=== PATIENT | male | born 1970 | race Caucasian/White ===

== ENCOUNTER → 2017-08-01 | Outpatient (CLI) | payer OTHER ==
--- NOTE | 2017-08-01 10:48 | RAD ---
Examination: Lumbar spine, AP and lateral views History: Back pain and left leg pain Findings: Mild disc narrowing and osteophyte formation at multiple levels. This is most advanced at L 5-S1. There is slight anterior listhesis at L5-S1. No fracture or bone destruction is seen. Impression: No acute process identified. Degenerative disc disease and spondylosis. L5-S1 subluxati on may be of degenerative origin although additional imaging would be helpful to detect possible pars interarticularis defects at L5, that would predispose to this deformity. Reported By:
== END ==
LOC: RAD 10:01
PROVIDERS: ATTEND Internal Medicine
DX: Z02.71 Encounter for disability determination (principal)
CPT/HCPCS: 72100

== ENCOUNTER 2019-03-22 07:28 | Observation (INO) ==
[2019-03-22 08:05] VITALS: BMI 41.9
[2019-03-22] MEDS ORDERED: ZOFRAN INJ 4 MG VIAL IVP ONE ×2 (08:09→09:03)
[2019-03-22] MEDS ORDERED: ZOFRAN INJ 4 MG VIAL ONE (08:13)
[2019-03-22 08:32] LABS: BASOPHILS # (AUTO) 0.1 X10^3/uL (0.0-0.1); BASOPHILS % (AUTO) 0.4 % (0.2-1.0); EOSINOPHILS # (AUTO) 0.6 x10^3/uL (0.0-0.2); EOSINOPHILS % (AUTO) 2.8 % (0.9-2.9); HEMATOCRIT 45.4 % (42.0-54.0); HEMOGLOBIN 15.5 g/dL (13.5-18.0); LYMPHOCYTES # (AUTO) 1.8 X10^3/uL (1.3-2.9); LYMPHOCYTES % (AUTO) 7.9 % (21.0-51.0); MEAN CORPUSCULAR HEMOGLOBIN 29.8 pg (27.0-34.0); MEAN CORPUSCULAR HGB CONC 34.2 g/dL (33.0-35.0); MEAN CORPUSCULAR VOLUME 87.2 fL (80.0-100.0); MEAN PLATELET VOLUME 10.1 fL (7.4-11.0); MONOCYTES # (AUTO) 1.5 x10^3/uL (0.3-0.8); MONOCYTES % (AUTO) 6.6 % (0.0-13.0); NEUTROPHILS # (AUTO) 18.5 x10^3/uL (2.2-4.8); NEUTROPHILS % (AUTO) 82.3 % (42.0-75.0); PLATELET COUNT 356 X10^3/uL (150.0-450.0); RED CELL DISTRIBUTION WIDTH 16.1 % (11.6-16.5); WHITE BLOOD COUNT 22.5 X10^3/uL (3.6-10.0)
[2019-03-22] MEDS ORDERED: NS 1000 ML 1,000 ML ONE ×2 (08:35→10:21)
[2019-03-22] MEDS ORDERED: NS 1000 ML 1,000 ML IV ONE ×3 (08:35→10:17)
[2019-03-22 08:36] LABS: BLOOD UREA NITROGEN 17 mg/dL (7-18); CALCIUM 9.3 mg/dL (8.5-10.1); CARBON DIOXIDE 28.9 mmol/L (21-32); CHLORIDE 101 mmol/L (98-107); COR NA(FOR HYPERGLY) 142 mmol/L (136-145); CREATININE 0.95 mg/dL (0.70-1.30); SODIUM 141 mmol/L (136-145); eGFR NON BLACK RACES > 60 (>60)
[2019-03-22 09:01] LABS: BAND NEUTROPHILS % 5 % (0-10)
[2019-03-22 09:02] LABS: PLATELET MORPHOLOGY COMMENT NORMAL (NORMAL)
--- NOTE | 2019-03-22 09:27 | DR.N/VMALE ---
HPI Time Seen Time Seen by Provider: 03/22/19 08:08 Primary Care Physician Primary Care Physician: AMITA CORNELL HPI Comment HPI Comment: 49 yo CM w/ prev hx of electrocution, sarcardosis, splenectomy presents w/ n/v/d x 5 hrs. Multiple episodes of emesis, a/w diffuse abd cramping. Denies f/c, urinary sx's, bllod per rectum, CP/ SOB. Complaints Chief Complaint:: nausea/ vomiting/ diarrhea Reviewed Nurses Notes Reviewed: Yes Source History Provided: Patient Mode of Arrival Mode of Arrival: Ambulatory Timing Onset of Chief Complaint: 03/22/19 Duration Duration: 5 h Severity Number of episodes of vomiting over last 24 hours: 4 Context Onset: After Eating Recent: Contact Exposure Possible Ingestion: Unknown History of: Abdominal Operation Quality Quality: Food Particles Associated Signs and Symptoms Abdominal Pain Quality: Cramping Abdominal Pain Location: Diffuse Symptoms: Abdominal Pain and Diarrhea; denies Hematemesis, Melena, Hematochezia and Fever PMH PMH Past Medical History: Yes Past Medical History: Hypertension Past Medical History Comment: SARCOIDOSIS AND ELECTROCUTED IN 2017 Past Surgical History: Yes Surgical History: Ortho Surgery and Spleenectomy Family History History of Family Medical Conditions: Yes Family Medical History: [place], Coronary Artery Disease, Heart Failure and Hypertension Social History Does patient currently use any type of tobacco product: No Have you used tobacco products in the last 12 months: No Type of Tobacco Use: None Does any household member use tobacco: No Alcohol Use: None Do you use any recreational Drugs:: No Lives With: Family Lives Where: Home infectious screening In the last 2 months have you had wt loss of >10#?: NO Have you had fever, night sweats or hemotysis?: No Have you traveled outside the country in the last 6 months?: No Isolation: Standard ROS Review of Systems Constitutional: negative Chills, Fever and Malaise Respiratoy: negative Non-Productive Cough and Dry Cough Cardiovascular: No Symptoms Reported Gastrointestinal/Abdominal: Abdominal Pain, Diarrhea, Nausea and Vomiting; negative Constipation Genitourinary: No Symptoms Reported; negative Dysuria and Frequency Neurological: No Symptoms Reported; negative Headache and Numbness Musculoskeletal: No Symptoms Reported; negative Back Pain and Joint Pain Integumentary: No Symptoms Reported Hematologic/Lymphatic: No Symptoms Reported Endocrine: No Symptoms Reported Psychiatric: No Symptoms Reported All Other Systems: Reviewed and Negative PE Vital Signs Vitals: Temperature 99.7 F Pulse Rate [Left] 100 Pulse Rate 113 Respiratory Rate 18 Blood Pressure [Left Arm] 143/98 Blood Pressure 129/86 O2 Sat by Pulse Oximetry 90 General Limitations: No Limitations General Appearance: Alert, In Distress and Obese Head Head Exam: Normal Inspection Eyes Eye exam: Normal Appearance; negative Scleral Icterus ENT ENT Exam: Normal Exam Neck Neck Exam: Normal Inspection Chest Chest Inspection: Normal Inspection Respiratory Respiratory Exam: Normal Lung Sounds Bilat Cardiovascular Cardiovascular Exam: Normal Rhythm and Tachycardia; negative Systolic Murmur Abdominal Exam Abdominal Exam: Tenderness (mild diffuse tenderness ) and Hyperactive Bowel Sounds; negative Guarding, Rebound, Rigidity, Mass and Hernia Extremities Extremities Exam: Normal Inspection Back Back Exam: Normal Inspection Neurologic Neurological Exam: Alert and Oriented X3; negative Motor Sensory Deficit Psychiatric Psychiatric Exam: Normal Affect Skin Skin Exam: Warm and Dry; negative Rash MDM Additional Information Obtained Additional Information Obtained From: Old Records Differential Diagnosis Differential Diagnosis: Considerations may Include:: Bowel Obstruction, Cholecystitis, Food Poisoning, Gastritis, Gastroenteritis and Pancreatitis COURSE Treatment Treatment: Patient with previous hx of asplenia and ongoing oncologic workup presents with gastroenteritis. CBC w/ elevated wbc w/ left shift. BMP unremarkable. Given Zofran/ Compazine with symptomatic relief. 2L IVF bolus given. Persistent mild tachycardia hr 100-110 bpm range. Started on iv flagyl. d/w hospitalist Dr Cody whom agrees to admit to observation. CT abd/ pelvis ordered per hiss recommendation. Education/Counseling Education/Counseling: Patient and Family ROR Labs Reviewed Result Diagrams: 03/22/19 08:23 03/22/19 08:23 Laboratory: WBC 22.5 X10^3/uL (3.6-10.0) H 03/22/19 08:23 RBC 5.20 X10^6/uL (4.7-6.0) 03/22/19 08:23 Hgb 15.5 g/dL (13.5-18.0) 03/22/19 08:23 Hct 45.4 % (42.0-54.0) 03/22/19 08:23 MCV 87.2 fL (80.0-100.0) 03/22/19 08:23 MCH 29.8 pg (27.0-34.0) 03/22/19 08:23 MCHC 34.2 g/dL (33.0-35.0) 03/22/19 08:23 RDW 16.1 % (11.6-16.5) 03/22/19 08:23 Plt Count 356 X10^3/uL (150.0-450.0) 03/22/19 08:23 Plt Count Comment Adequate (ADEQUATE) 03/22/19 08:23 MPV 10.1 fL (7.4-11.0) 03/22/19 08:23 Neut % (Auto) 82.3 % (42.0-75.0) H 03/22/19 08:23 Lymph % (Auto) 7.9 % (21.0-51.0) L 03/22/19 08:23 [place] % (Auto) 6.6 % (0.0-13.0) 03/22/19 08:23 Eos % (Auto) 2.8 % (0.9-2.9) 03/22/19 08:23 Baso % (Auto) 0.4 % (0.2-1.0) 03/22/19 08:23 Neut # (Auto) 18.5 x10^3/uL (2.2-4.8) H 03/22/19 08:23 Lymph # (Auto) 1.8 X10^3/uL (1.3-2.9) 03/22/19 08:23 [place] # (Auto) 1.5 x10^3/uL (0.3-0.8) H 03/22/19 08:23 Eos # (Auto) 0.6 x10^3/uL (0.0-0.2) H 03/22/19 08:23 Baso # (Auto) 0.1 X10^3/uL (0.0-0.1) 03/22/19 08:23 Absolute Nucleated RBC 0.1 /100WBC 03/22/19 08:23 Total Counted 100 03/22/19 08:23 Neutrophils % (Manual) 82 % (39-76) H 03/22/19 08:23 Band Neutrophils % 5 % (0-10) 03/22/19 08:23 Lymphocytes % (Manual) 9 % (13-43) L 03/22/19 08:23 Monocytes % (Manual) 2 % (4-9) L 03/22/19 08:23 Eosinophils % (Manual) 2 % (0-6) 03/22/19 08:23 Plt Morphology Comment Normal (NORMAL) 03/22/19 08:23 RBC Morphology Normal (NORMAL) 03/22/19 08:23 Sodium 141 mmol/L (136-145) 03/22/19 08:23 Corrected Sodium 142 mmol/L (136-145) 03/22/19 08:23 Potassium 3.6 mmol/L (3.5-5.1) 03/22/19 08:23 Chloride 101 mmol/L (98-107) 03/22/19 08:23 Carbon Dioxide 28.9 mmol/L (21-32) 03/22/19 08:23 BUN 17 mg/dL (7-18) 03/22/19 08:23 Creatinine 0.95 mg/dL (0.70-1.30) 03/22/19 08:23 Est GFR (MDRD) Af Amer > 60 (>60) 03/22/19 08:23 Est GFR (MDRD) Non-Af > 60 (>60) 03/22/19 08:23 Glucose 123 mg/dL (65-99) H 03/22/19 08:23 Calcium 9.3 mg/dL (8.5-10.1) 03/22/19 08:23 EKG Rate: 101 Rhythm: ST Block: RBBB Hypertrophy: None ST: Normal Opioid Opioid Risk Tool Total: 0 Total Score Risk Category: Low Risk Copyright: Martinez BISWAS predicting aberrant behaviors Diagnosis Discharge Problem: Nausea and vomiting in adult patient, Asplenia, Gastroenteritis Instructions Forms: Excuse From Work ADDITIONAL NOTES Additional Notes Additional Notes: Patient to be admitted to observation under Dr Cody
[2019-03-22] MEDS ORDERED: TYLENOL 500 MG TAB EXTRA STRENGTH PO ONE ×2 (09:46→09:49)
[2019-03-22] MEDS ORDERED: FLAGYL IV PREMIX 500 MG BAG 500 MG/100 ML BAG IV ONE ×2 (11:28→11:32)
[2019-03-22] MEDS ORDERED: COMPAZINE INJ IVP ONE (11:41)
[2019-03-22] MEDS ORDERED: PHENERGAN INJ 25 MG IM PRN (11:46)
[2019-03-22] MEDS ORDERED: COMPAZINE INJ ONE ×2 (11:46→12:00)
[2019-03-22] MEDS ORDERED: ZOFRAN INJ 4 MG VIAL IVP PRN (11:46)
[2019-03-22] MEDS ORDERED: NS 100 ML IV 100 ML ONE (13:58)
--- NOTE | 2019-03-22 14:53 | CT ---
HISTORY: Nausea, vomiting, diarrhea, sharp cramping pain; history of sarcoidosis Study: CT abdomen and pelvis with contrast Comparison: None Technique: Multiple axial images of the abdomen and pelvis were obtained with IV contrast. Oral contrast was administered. Dose reduction techniques including Automated Exposure Control (AEC) and adjustment of mA and kV were utilized. Findings: There is platelike atelectasis or scarring at the right lung base along the fissure. The spleen appears to be removed with a residual splenule in the left upper quadrant. Pancreas and liver and adrenal glands are unremarkable. Gallbladder is contracted. Otherwise normal there are punctate bilateral nonobstructing renal calculi. No free intraperitoneal air. No evidence of intestinal obstruction or inflammation. There is diverticulosis of the descending and sigmoid colon without acute inflammation. The appendix is normal. No abscess or ascites. There is anterolisthesis of L5 on S1 due to bilateral pars defects. The vascular structures are within normal limits for age. Scattered mildly enlarged periportal and retroperitoneal lymph nodes are nonspecific but possibly related to the history of sarcoidosis. Urinary bladder is unremarkable. IMPRESSION: 1. No acute abnormality identified. 2. Bilateral nephrolithiasis. 3. Colonic diverticulosis. 4. Previous splenectomy with splenule in the left upper quadrant. 5. Scattered periportal and retroperitoneal lymph nodes that are mildly prominent, possibly related to the given history of sarcoidosis. Reported By:
[2019-03-22] MEDS: NS 1000 ML 1,000 ML IV SCH ×2 (15:49→20:40)
[2019-03-22] MEDS: TYLENOL 325 MG TAB PO PRN ×2 (17:40→23:42)
[2019-03-22] MEDS: FLAGYL IV PREMIX 500 MG BAG 500 MG/100 ML BAG IV SCH (20:40)
[2019-03-23] MEDS: NS 1000 ML 1,000 ML IV SCH ×5 (00:58→22:20)
[2019-03-23] MEDS: FLAGYL IV PREMIX 500 MG BAG 500 MG/100 ML BAG IV SCH ×4 (02:09→22:21)
[2019-03-23 05:24] LABS: BASOPHILS # (AUTO) 0.2 X10^3/uL (0.0-0.1); BASOPHILS % (AUTO) 1.3 % (0.2-1.0); EOSINOPHILS # (AUTO) 0.4 x10^3/uL (0.0-0.2); HEMATOCRIT 38.4 % (42.0-54.0); LYMPHOCYTES # (AUTO) 2.9 X10^3/uL (1.3-2.9); LYMPHOCYTES % (AUTO) 19.8 % (21.0-51.0); MEAN CORPUSCULAR HEMOGLOBIN 30.1 pg (27.0-34.0); MEAN CORPUSCULAR HGB CONC 34.3 g/dL (33.0-35.0); MEAN CORPUSCULAR VOLUME 87.7 fL (80.0-100.0); MEAN PLATELET VOLUME 10.5 fL (7.4-11.0); MONOCYTES # (AUTO) 1.5 x10^3/uL (0.3-0.8); MONOCYTES % (AUTO) 10.2 % (0.0-13.0); NEUTROPHILS # (AUTO) 9.6 x10^3/uL (2.2-4.8); NEUTROPHILS % (AUTO) 65.7 % (42.0-75.0); PLATELET COUNT 307 X10^3/uL (150.0-450.0); RED BLOOD COUNT 4.38 X10^6/uL (4.7-6.0); WHITE BLOOD COUNT 14.6 X10^3/uL (3.6-10.0)
[2019-03-23 05:26] LABS: ALANINE AMINOTRANSFERASE 30 Units/L (12-78); ALKALINE PHOSPHATASE 37 Units/L (46-116); ASPARTATE AMINO TRANSFERASE 25 Units/L (15-37); BLOOD UREA NITROGEN 15 mg/dL (7-18); CARBON DIOXIDE 26.4 mmol/L (21-32); CHLORIDE 105 mmol/L (98-107); COR CA(FOR HYPOALB) 8.8 mg/dL (8.5-10.1); SODIUM 142 mmol/L (136-145); TOTAL PROTEIN 6.8 g/dL (6.4-8.2); eGFR NON BLACK RACES > 60 (>60)
[2019-03-23] MEDS ORDERED: KLOR-CON PO PRN (05:30)
[2019-03-23] MEDS ORDERED: K-RIDER 10 MEQ/NS 100 ML 10 MEQ/100 ML BAG IV PRN (05:30)
[2019-03-23] MEDS ORDERED: MICRO K EXTEN CAP 10 MEQ PO PRN (05:30)
[2019-03-23] MEDS ORDERED: POTASSIUM CHL 60 MEQ/NS 0.45% 500 ML IV PRN (05:30)
[2019-03-23] MEDS ORDERED: POTASSIUM CHLORIDE LIQ 20 MEQ UDC PO PRN (05:30)
[2019-03-23] MEDS ORDERED: POTASSIUM CHL 40 MEQ/NS 0.45% 500 ML IV PRN (05:30)
[2019-03-23] MEDS ORDERED: K-DUR TAB 20 MEQ PO PRN (05:30)
[2019-03-23 05:59] LABS: HEMOGLOBIN 13.2 g/dL (13.5-18.0)
[2019-03-23] MEDS: MAGNESIUM SULFATE 1 GRAM/100 mL PREMIX 1 GM/100 ML BAG IV PRN ×3 (06:37→12:00)
--- NOTE | 2019-03-23 14:11 | DR.H&P ---
H&P - History & Physical for Day of: H&P Date: 03/22/19 - Chief Complaint Chief Complaint: ABDOMINAL PAIN,N/V/D - History of Present Illness History of Present Illness: 49 WM ER ADMISSION AFTER PRESENTING WITH CO WEAKNESS, ABDOMINAL PAIN, N/V/D ONSET AFTER EATING AT FAMILY REUNION. PT STATES HE THINKS HE HAS FOOD POISONING. PT REPORTS OTHER FAMILY MEMEBERS HAVE SAME SYMPTOMS. PT HAD ELEVATED WBC ON ADMISSION IN ER WITH CT ABD PELVIS WITH CHRONIC FINDINGS. PT REPORTS HE IS UNDER CARE OF DR SARA ODEN FOR RECENT LEUKOCYTOSIS, WBC BEEN RUNNING AROUND 18K PER PT REPORTS. PT HAS HX OF SARCOIDSIS WITH PREVIOUS SLEENECTOMY. PT ADMITTED FOR TREATMENT OF DEHYDRATION AND ELECTROLYTE IMBALACE AND ACUTE GASTROENTERITIS. - Past Medical History Past Medical History: Hypertension Additional Medical History: SARCOIDOSIS, BLOOD DISORDER/LEUKOCYTOSIS OF UO - Past Surgical History Surgical History: Ortho Surgery, Spleenectomy - Family History Family Medical History: [place], Coronary Artery Disease, Heart Failure, Hypertension - Social History Does patient currently use any type of tobacco product: No Have you used tobacco products in the last 12 months: No Type of Tobacco Use: None Does any household member use tobacco: No Alcohol Use: None Drug Use: None - Medications Home Medications: codeine Allergy (Verified 03/22/19 08:05) - Review of Systems Constitutional: Weakness Eyes: No Symptoms Reported ENT: No Symptoms Reported Respiratory: No Symptoms Reported Cardiovascular: No Symptoms Reported Gastrointestinal: Nausea, Vomiting, Abdominal Pain, Diarrhea Genitourinary: No Symptoms Reported Musculoskeletal: No Symptoms Reported Skin: No Symptoms Reported Neurological: Weakness - Physical Exam Vital Signs: Temperature 98.9 F Pulse Rate [Left Brachial] 80 Pulse Rate [Left] 100 Pulse Rate 113 Respiratory Rate 18 Blood Pressure [Left Arm] 163/95 Blood Pressure 129/86 O2 Sat by Pulse Oximetry 94 Oriented: Normal Eyes: Normal Ear: Normal Nose: Normal Throat: Dry Respiratory: RLL Diminished, LLL Diminished Cardiovascular: Normal : Normal Auscultation: Bowel Sounds: Increased Tenderness: Diffuse, Mild Skin: Normal Musculoskeletal: Normal Psychiatric: Normal Affect: Anxious Speech Pattern: Clear, Appropriate - Assessment/Plan (1) Gastroenteritis Status: Acute Plan: ADMIT IV HYDRATION. IV ATBX THERAPY IV FLAGYL AND CIPRO. STOOL STUDIES. 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
--- NOTE | 2019-03-23 14:15 | PCM.PROG ---
Progress Note - Progress Note for Day of Date of Exam: 03/23/19 - Subjective Subjective: 49 WM ER ADMISSION ON 03/22 WITH ACUTE GASTROENTERITIS WITH SUSPECTED SOURCE FOOD RELATED. PT HAD LOW POTASSIUM AND MAGNESIUM, CURRENLTY ON ELECTROLYTE REPLACEMENT. PT IS ALSO ON IV HYDRATION. PAIN IMPROVING, WILL ADVANCE DIET SINCE NO VOMITING. WBC IMPROVED FROM 22.5 TO 14.6 - Past Medical Family Social History Past Med/Fam/Surg Hx: No changes since H&P Allergies: Allergies codeine Allergy (Verified 03/22/19 08:05) - Review of Systems ROS: No change since H&P - Vital Signs and I&O's Vital Signs: Temperature 98.9 F Pulse Rate [Left Brachial] 80 Pulse Rate [Left] 100 Pulse Rate 113 Respiratory Rate 18 Blood Pressure [Left Arm] 163/95 Blood Pressure 129/86 O2 Sat by Pulse Oximetry 94 Intake and Output: Intake & Output 03/21/19 03/22/19 03/23/19 03/24/19 11:59 11:59 11:59 11:59 Intake Total 1508 / 1508 Output Total 250 / 250 Balance 1258 / 1258 - Physical Exam Oriented: Normal Eyes: Normal Ear: Normal Nose: Normal Throat: Dry Respiratory: Diminished Cardiovascular: Normal : Normal Auscultation: Bowel Sounds: Increased Tenderness: Diffuse, Mild Skin: Normal Musculoskeletal: Normal Psychiatric: Normal Affect: Anxious Speech Pattern: Clear, Appropriate - Laboratory and Diagnostics Result Diagrams: 03/23/19 04:35 03/23/19 08:20 Labs: 03/22/19 12:48 Stool Stool Culture - Preliminary 03/22/19 12:48 Stool - Final Laboratory WBC 14.6 X10^3/uL (3.6-10.0) H 03/23/19 04:35 RBC 4.38 X10^6/uL (4.7-6.0) L 03/23/19 04:35 Hgb 13.2 g/dL (13.5-18.0) L D 03/23/19 04:35 Hct 38.4 % (42.0-54.0) L 03/23/19 04:35 MCV 87.7 fL (80.0-100.0) 03/23/19 04:35 MCH 30.1 pg (27.0-34.0) 03/23/19 04:35 MCHC 34.3 g/dL (33.0-35.0) 03/23/19 04:35 RDW 16.0 % (11.6-16.5) 03/23/19 04:35 Plt Count 307 X10^3/uL (150.0-450.0) 03/23/19 04:35 Plt Count Comment Adequate (ADEQUATE) 03/22/19 08:23 MPV 10.5 fL (7.4-11.0) 03/23/19 04:35 Neut % (Auto) 65.7 % (42.0-75.0) 03/23/19 04:35 Lymph % (Auto) 19.8 % (21.0-51.0) L 03/23/19 04:35 [place] % (Auto) 10.2 % (0.0-13.0) 03/23/19 04:35 Eos % (Auto) 3.0 % (0.9-2.9) H 03/23/19 04:35 Baso % (Auto) 1.3 % (0.2-1.0) H 03/23/19 04:35 Neut # (Auto) 9.6 x10^3/uL (2.2-4.8) H 03/23/19 04:35 Lymph # (Auto) 2.9 X10^3/uL (1.3-2.9) 03/23/19 04:35 [place] # (Auto) 1.5 x10^3/uL (0.3-0.8) H 03/23/19 04:35 Eos # (Auto) 0.4 x10^3/uL (0.0-0.2) H 03/23/19 04:35 Baso # (Auto) 0.2 X10^3/uL (0.0-0.1) H 03/23/19 04:35 Absolute Nucleated RBC 0.1 /100WBC 03/23/19 04:35 Total Counted 100 03/22/19 08:23 Neutrophils % (Manual) 82 % (39-76) H 03/22/19 08:23 Band Neutrophils % 5 % (0-10) 03/22/19 08:23 Lymphocytes % (Manual) 9 % (13-43) L 03/22/19 08:23 Monocytes % (Manual) 2 % (4-9) L 03/22/19 08:23 Eosinophils % (Manual) 2 % (0-6) 03/22/19 08:23 Plt Morphology Comment Normal (NORMAL) 03/22/19 08:23 RBC Morphology Normal (NORMAL) 03/22/19 08:23 Sodium 142 mmol/L (136-145) 03/23/19 04:35 Corrected Sodium TNP 03/23/19 04:35 Potassium 3.8 mmol/L (3.5-5.1) 03/23/19 08:20 Chloride 105 mmol/L (98-107) 03/23/19 04:35 Carbon Dioxide 26.4 mmol/L (21-32) 03/23/19 04:35 BUN 15 mg/dL (7-18) 03/23/19 04:35 Creatinine 0.90 mg/dL (0.70-1.30) 03/23/19 04:35 Est GFR (MDRD) Af Amer > 60 (>60) 03/23/19 04:35 Est GFR (MDRD) Non-Af > 60 (>60) 03/23/19 04:35 Glucose 101 mg/dL (65-99) H 03/23/19 04:35 Calcium 8.0 mg/dL (8.5-10.1) L 03/23/19 04:35 Corrected Calcium 8.8 mg/dL (8.5-10.1) 03/23/19 04:35 Magnesium 1.2 mg/dL (1.7-2.9) L 03/23/19 04:35 Total Bilirubin 0.50 mg/dL (0.2-1.0) 03/23/19 04:35 AST 25 Units/L (15-37) 03/23/19 04:35 ALT 30 Units/L (12-78) 03/23/19 04:35 Alkaline Phosphatase 37 Units/L (46-116) L 03/23/19 04:35 Total Protein 6.8 g/dL (6.4-8.2) 03/23/19 04:35 Albumin 3.0 g/dL (3.4-5.0) L 03/23/19 04:35 Globulin 3.8 g/dL (2.5-4.5) 03/23/19 04:35 Albumin/Globulin Ratio 0.8 Ratio (1.1-2.1) L 03/23/19 04:35 Stool Description 240g,lt brown,liquid 03/22/19 12:48 Stl Occult Blood (IFOB) Negative (NEGATIVE) 03/22/19 12:48 Stool for White Cells Positive (NEGATIVE) A 03/22/19 12:48 Stl C. diff Tox B Gene Negative (NEGATIVE) 03/22/19 12:48 Stl C. diff [id number] Negative (NEGATIVE) 03/22/19 12:48 - Plan (1) Gastroenteritis Status: Acute Plan: IV HYDRATION. IV ATBX THERAPY IV FLAGYL AND CIPRO. STOOL STUDIES. 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
[2019-03-23] MEDS: CIPRO IV 400 MG PREMIX* 400 MG/200 ML IV.SOLN. IV SCH (18:00)
[2019-03-23] MEDS: ZESTRIL TAB 10 MG PO SCH (22:21)
[2019-03-24] MEDS: CIPRO IV 400 MG PREMIX* 400 MG/200 ML IV.SOLN. IV SCH ×2 (00:33→10:10)
[2019-03-24] MEDS ORDERED: ZANAFLEX PO PRN (00:41)
[2019-03-24] MEDS ORDERED: NORCO 10/325 TAB PO PRN (00:41)
[2019-03-24] MEDS: NS 1000 ML 1,000 ML IV SCH ×2 (03:11→04:30)
[2019-03-24] MEDS: FLAGYL IV PREMIX 500 MG BAG 500 MG/100 ML BAG IV SCH ×2 (03:11→08:47)
[2019-03-24 05:29] LABS: BASOPHILS # (AUTO) 0.2 X10^3/uL (0.0-0.1); BASOPHILS % (AUTO) 0.9 % (0.2-1.0); EOSINOPHILS # (AUTO) 0.6 x10^3/uL (0.0-0.2); EOSINOPHILS % (AUTO) 3.4 % (0.9-2.9); HEMOGLOBIN 12.9 g/dL (13.5-18.0); LYMPHOCYTES # (AUTO) 2.7 X10^3/uL (1.3-2.9); LYMPHOCYTES % (AUTO) 15.3 % (21.0-51.0); MEAN CORPUSCULAR HEMOGLOBIN 29.8 pg (27.0-34.0); MEAN CORPUSCULAR VOLUME 87.6 fL (80.0-100.0); MEAN PLATELET VOLUME 10.4 fL (7.4-11.0); MONOCYTES # (AUTO) 2.1 x10^3/uL (0.3-0.8); MONOCYTES % (AUTO) 12.1 % (0.0-13.0); NEUTROPHILS # (AUTO) 11.8 x10^3/uL (2.2-4.8); NEUTROPHILS % (AUTO) 68.3 % (42.0-75.0); PLATELET COUNT 292 X10^3/uL (150.0-450.0); RED BLOOD COUNT 4.33 X10^6/uL (4.7-6.0); RED CELL DISTRIBUTION WIDTH 16.2 % (11.6-16.5); WHITE BLOOD COUNT 17.3 X10^3/uL (3.6-10.0)
[2019-03-24 05:31] LABS: ALANINE AMINOTRANSFERASE 28 Units/L (12-78); ALBUMIN 3.1 g/dL (3.4-5.0); ALKALINE PHOSPHATASE 35 Units/L (46-116); ASPARTATE AMINO TRANSFERASE 22 Units/L (15-37); BLOOD UREA NITROGEN 11 mg/dL (7-18); CALCIUM 7.9 mg/dL (8.5-10.1); CHLORIDE 105 mmol/L (98-107); COR CA(FOR HYPOALB) 8.6 mg/dL (8.5-10.1); CREATININE 0.88 mg/dL (0.70-1.30); MAGNESIUM 1.8 mg/dL (1.7-2.9); SODIUM 141 mmol/L (136-145); TOTAL PROTEIN 6.9 g/dL (6.4-8.2); eGFR NON BLACK RACES > 60 (>60)
[2019-03-24 08:07] VITALS: BP 175/111
[2019-03-24] MEDS ORDERED: ZOLOFT ONE (08:29)
[2019-03-24] MEDS: ZESTRIL TAB 10 MG PO SCH (08:48)
[2019-03-24] MEDS ORDERED: ASPIRIN PO SCH (09:00)
[2019-03-24] MEDS ORDERED: PATIENT'S HOME MEDICATION PO SCH (09:00)
[2019-03-24] MEDS ORDERED: ZOLOFT PO SCH (09:00)
[2019-03-24] MEDS ORDERED: NEURONTIN CAP 300 MG PO SCH (09:00)
[2019-03-24] MEDS ORDERED: MILK OF MAGNESIA PO SCH (09:00)
[2019-03-24] MEDS ORDERED: ZYLOPRIM PO SCH (09:00)
[2019-03-24] MEDS ORDERED: PROTONIX TAB 40 MG PO SCH (21:00)
[2019-03-24] MEDS ORDERED: DESYREL PO SCH (21:00)
[2019-03-24] MEDS ORDERED: COLACE CAP 100 MG PO SCH (21:00)
== END 2019-03-24 13:15 | disposition home or self-care (01) ==
LOC: MED/SURG 07:31 → ER 07:31 → MED/SURG 12:23
PROVIDERS: ADMIT Internal Medicine; ATTEND Internal Medicine
DX: R11.2 Nausea with vomiting, unspecified; N20.0 Calculus of kidney; R94.31 Abnormal electrocardiogram [ECG] [EKG]; K57.30 Diverticulosis of large intestine without perforation or abscess without bleeding; Z90.81 Acquired absence of spleen; K52.89 Other specified noninfective gastroenteritis and colitis; E86.0 Dehydration
CPT/HCPCS: 36415; 74177; 80048; 80053; 82270; 83630; 83735; 84132; 85025; 87045; 87427; 87449; 87493; 87899; 93005; 96365; 96367; 96374; 96375; 99218; 99284; A4222; S0030; G0378; J0744; J0780; J2405; J3475; J3490; J7030; J7050

== ENCOUNTER 2022-03-02 15:16 | Observation (INO) ==
[2022-03-02] MEDS ORDERED: ASPIRIN 81 MG CHEWTAB ONE (15:20)
[2022-03-02] MEDS ORDERED: CATAPRES TAB 0.1 MG ONE (15:20)
[2022-03-02] MEDS ORDERED: NITROSTAT ONE (15:20)
[2022-03-02] MEDS ORDERED: ZOFRAN INJ 4 MG VIAL IVP ONE (15:21)
[2022-03-02] MEDS ORDERED: NITROSTAT SL PRN ×2 (15:21→19:01)
[2022-03-02] MEDS ORDERED: ZOFRAN INJ 4 MG VIAL ONE (15:21)
[2022-03-02] MEDS ORDERED: ASPIRIN 81 MG CHEWTAB PO ONE (15:22)
[2022-03-02] MEDS ORDERED: CATAPRES TAB 0.1 MG PO ONE (15:23)
--- NOTE | 2022-03-02 15:34 | DR.CP ---
HPI Time Seen Time Seen by Provider: 03/02/22 15:32 PCP Primary Care Physician: DR MARTINEZ Complaint Chief Complaint Doctor Comments: SUBSTERNAL CHEST PAIN STARTING ABOUT AN HOUR BEFORE BEFORE ER VISIT. SYMPTOMS STARTED AFTER EATING [employer]. Chief Complaint:: PT C/O SUDDEN ONSET APPROXIMATELY ONE HOUR AGO OR SUBSTERNAL NONRADIATING CHEST PRESSURE THAT STARTED WHILE RESTING. PT ALSO C/O SHORTNESS OF BREATH AND NAUSEA. COVID-19 Coronavirus risk:travel/contact w/high risk person: No Has patient experienced Coronavirus symptoms: No Source History Provided: Patient and Parent Mode of Arrival Mode of Arrival: Wheelchair Timing Onset of Chief Complaint: 03/02/22 Location Chest Pain Radiation Location: None Associated Signs and Symptoms Associated Signs and Symptoms: Shortness of Breath and Nausea/Vomiting PMH PMH Past Medical History: Yes Past Medical History: Diabetes, Dyslipidemia, Hypertension and Sleep Apnea Past Medical History Comment: DEGENERATIVE DISC DISEASE, CHRONIC BACK PAIN, LEAKY HEART VALVES Past Surgical History: Yes Surgical History: Ortho Surgery, Spleenectomy and Tonsillectomy Family History History of Family Medical Conditions: Yes Family Medical History: Diabetes Mellitus, Cancer, [place], Coronary Artery Disease and Hypertension Social History Does patient currently use any type of tobacco product: No Have you used tobacco products in the last 12 months: No Type of Tobacco Use: None Does any household member use tobacco: No Alcohol Use: None Do you use any recreational Drugs:: Yes (MARIJUANA) Lives Where: Home Travel Risk Coronavirus risk:travel/contact w/high risk person: No Has patient experienced Coronavirus symptoms: No Infectious screening In the last 2 months have you had wt loss of >10#?: NO Have you had fever, night sweats or hemotysis?: No Have you traveled outside the country in the last 6 months?: No Isolation: Standard ROS Review of Systems Constitutional: Other (SUBSTERNAL CHEST PAIN) Eyes: No Symptoms Reported ENTM: No Symptoms Reported Respiratoy: No Symptoms Reported Cardiovascular: Chest Pain Gastrointestinal/Abdominal: No Symptoms Reported Genitourinary: No Symptoms Reported Neurological: No Symptoms Reported Musculoskeletal: No Symptoms Reported Integumentary: No Symptoms Reported Hematologic/Lymphatic: No Symptoms Reported Endocrine: No Symptoms Reported Psychiatric: No Symptoms Reported PE Vitals Vitals: Temperature 98.1 F Pulse Rate 68 Respiratory Rate 18 Blood Pressure [Left Arm] 138/72 Blood Pressure 167/94 O2 Sat by Pulse Oximetry 95 General Limitations: No Limitations General Appearance: In Distress (MODERATE DISTRESS) Head Head Exam: Normal Inspection Eyes Eye exam: Normal Appearance, PERRL and EOMI ENT ENT Exam: Normal Exam and Normal Oropharynx Chest Chest Inspection: Normal Inspection and Symmetric Chest Wall Rise Respiratory Respiratory Exam: Normal Lung Sounds Bilat Cardiovascular Cardiovascular Exam: Regular Rate and Normal Rhythm Pulse: Normal Abdominal Exam Abdominal Exam: Normal Inspection, Normal Bowel Sounds and Soft Extremities Extremities Exam: Normal Inspection and Full ROM Back Back Exam: Normal Inspection and Full ROM Neurologic Neurological Exam: Alert and Oriented X3 Skin Skin Exam: Warm and Dry MDM Differential Diagnosis Differential Diagnosis: Angina, Gastritis and Myocardial Infarction COURSE Treatment Treatment: PATIENT WAS GIVEN ASA 325MG ORALLY,NTG 0.4MG SL AND MORPHINE 2MG IV FOR PAIN AND ZOFRAN 4MG IV FOR NAUSEA. THE PATIENT'S PAIN WAS RELIEVED WITH THIS TREATMENT. THE PATIENT ALSO HAD ELEVATED BP AND WAS GIVEN ALSO CLONIDINE 0.1MG ORALLY WITH DECREASE IN BLOOD PRESSURE. THE EKG SHOWED NSR WITH RBBB, CARDIAC ENZYMES WERE NORMAL. CHEST XRAY SHOWED WIDENED MEDIASTINUM THAT WAS BECAUSE OF SARCOIDOSIS. SINCE THE PATIENT HAD CHEST PAIN AND SARCOIDOSIS AND INITIAL MALIGNANT HTN WILL REFER TO OBSERVATION TO RULE OUT AMI. PATIENT IS AWARE OF THE INTEN AND IS AGREABLE TO THE OBSERVATION. SPOKE TO DR IVORY AT 1845 AND HE STATED HE WOULD ACCEPT THE PATIENT TO OBSERVATION TO R/O AMI BUT PATIENT MIGHT BE SEEKING. HOLD THE MORPHINE FOR PAIN AND CONTINUE THE NTG 0.4 MG SL PRN. ROR Labs Reviewed Laboratory Results Reviewed?: Yes Result Diagrams: 03/02/22 15:30 03/02/22 15:30 Laboratory: WBC 17.9 X10^3/uL (3.6-10.0) H 03/02/22 15:30 RBC 4.62 X10^6/uL (4.7-6.0) L 03/02/22 15:30 Hgb 14.2 g/dL (13.5-18.0) 03/02/22 15:30 Hct 40.2 % (42.0-54.0) L 03/02/22 15:30 MCV 87.2 fL (80.0-100.0) 03/02/22 15:30 MCH 30.7 pg (27.0-34.0) 03/02/22 15:30 MCHC 35.2 g/dL (33.0-35.0) H 03/02/22 15:30 RDW 15.8 % (11.6-16.5) 03/02/22 15:30 Plt Count 269 X10^3/uL (150.0-450.0) 03/02/22 15:30 MPV 10.2 fL (7.4-11.0) 03/02/22 15:30 Neut % (Auto) 63.7 % (42.0-75.0) 03/02/22 15:30 Lymph % (Auto) 21.4 % (21.0-51.0) 03/02/22 15:30 [place] % (Auto) 8.2 % (0.0-13.0) 03/02/22 15:30 Eos % (Auto) 5.5 % (0.9-2.9) H 03/02/22 15:30 Baso % (Auto) 1.2 % (0.2-1.0) H 03/02/22 15:30 Neut # (Auto) 11.4 x10^3/uL (2.2-4.8) H 03/02/22 15:30 Lymph # (Auto) 3.8 X10^3/uL (1.3-2.9) H 03/02/22 15:30 [place] # (Auto) 1.5 x10^3/uL (0.3-0.8) H 03/02/22 15:30 Eos # (Auto) 1.0 x10^3/uL (0.0-0.2) H 03/02/22 15:30 Baso # (Auto) 0.2 X10^3/uL (0.0-0.1) H 03/02/22 15:30 Absolute Nucleated RBC 0.1 /100WBC 03/02/22 15: PT 14.4 SECONDS (11.8-14.3) 03/02/22 15:30 INR Target Range - 03/02/22 15:30 INR 1.15 (0.8-1.3) 03/02/22 15:30 APTT 35.8 SECONDS (22.9-36.5) 03/02/22 15:30 PTT Comment - 03/02/22 15:30 Sodium 142 mmol/L (136-145) 03/02/22 15:30 Corrected Sodium 145 mmol/L (136-145) 03/02/22 15:30 Potassium 3.2 mmol/L (3.5-5.1) L 03/02/22 15:30 Chloride 103 mmol/L (98-107) 03/02/22 15:30 Carbon Dioxide 29.5 mmol/L (21-32) 03/02/22 15:30 BUN 15 mg/dL (7-18) 03/02/22 15:30 Creatinine 1.18 mg/dL (0.70-1.30) 03/02/22 15:30 Est GFR (MDRD) Af Amer > 60 (>60) 03/02/22 15:30 Est GFR (MDRD) Non-Af > 60 (>60) 03/02/22 15:30 Glucose 234 mg/dL (65-99) H 03/02/22 15:30 Calcium 9.2 mg/dL (8.5-10.1) 03/02/22 15:30 Corrected Calcium TNP 03/02/22 15:30 Magnesium 1.4 mg/dL (1.7-2.9) L 03/02/22 15:30 Total Bilirubin 0.50 mg/dL (0.2-1.0) 03/02/22 15:30 AST 35 Units/L (15-37) 03/02/22 15:30 ALT 41 Units/L (12-78) 03/02/22 15:30 Alkaline Phosphatase 62 Units/L (46-116) 03/02/22 15:30 Creatine Kinase 434 Units/L (39-308) H 03/02/22 15:30 Troponin I High Sens 8.9 ng/L (4.0-60.0) 03/02/22 15:30 Total Protein 7.6 g/dL (6.4-8.2) 03/02/22 15:30 Albumin 3.4 g/dL (3.4-5.0) 03/02/22 15:30 Globulin 4.2 g/dL (2.5-4.5) 03/02/22 15:30 Albumin/Globulin Ratio 0.8 Ratio (1.1-2.1) L 03/02/22 15:30 SARS-CoV-2 (PCR) Negative (NEGATIVE) 03/02/22 17:15 Opioid Opioid Risk Tool Age (Flo box if 16-45): No History of Preadolescent Sexual Abuse: No Total: 0 Total Score Risk Category: Low Risk Copyright: Martinez BISWAS predicting aberrant behaviors Discharge Plan Diagnosis Discharge Problem: Angina pectoris, Sarcoidosis, Hypokalemia, Hypomagnesemia Discharge Plan Patient Disposition: 09 ADMITTED INPATIENT Condition: Stable
[2022-03-02 15:40] LABS: BASOPHILS # (AUTO) 0.2 X10^3/uL (0.0-0.1); BASOPHILS % (AUTO) 1.2 % (0.2-1.0); EOSINOPHILS % (AUTO) 5.5 % (0.9-2.9); HEMATOCRIT 40.2 % (42.0-54.0); HEMOGLOBIN 14.2 g/dL (13.5-18.0); LYMPHOCYTES # (AUTO) 3.8 X10^3/uL (1.3-2.9); LYMPHOCYTES % (AUTO) 21.4 % (21.0-51.0); MEAN CORPUSCULAR HEMOGLOBIN 30.7 pg (27.0-34.0); MEAN CORPUSCULAR HGB CONC 35.2 g/dL (33.0-35.0); MEAN CORPUSCULAR VOLUME 87.2 fL (80.0-100.0); MEAN PLATELET VOLUME 10.2 fL (7.4-11.0); MONOCYTES # (AUTO) 1.5 x10^3/uL (0.3-0.8); MONOCYTES % (AUTO) 8.2 % (0.0-13.0); NEUTROPHILS # (AUTO) 11.4 x10^3/uL (2.2-4.8); NEUTROPHILS % (AUTO) 63.7 % (42.0-75.0); RED BLOOD COUNT 4.62 X10^6/uL (4.7-6.0); RED CELL DISTRIBUTION WIDTH 15.8 % (11.6-16.5); WHITE BLOOD COUNT 17.9 X10^3/uL (3.6-10.0)
--- NOTE | 2022-03-02 15:49 | RAD ---
HISTORYChest pressure SOBSTUDYPortable AP chestCOMPARISONCT chest 06/11/2019FINDINGSThe heart is enlarged. The lungs are clear of active appearing disease. There is no pleural fluid, pneumonia or CHF demonstrated. There is widening of the upper mediastinum.IMPRESSIONCardiomegaly with no acute pulmonary lesion identified. Widened mediastinum is nonspecific but previous CT imaging has described adenopathy related to sarcoidosis.Electronically signed by: ALBA ARENAS (Mar 02, 2022 15:47:16)
[2022-03-02 16:00] LABS: ALANINE AMINOTRANSFERASE 41 Units/L (12-78); ALBUMIN 3.4 g/dL (3.4-5.0); ALKALINE PHOSPHATASE 62 Units/L (46-116); ASPARTATE AMINO TRANSFERASE 35 Units/L (15-37); BLOOD UREA NITROGEN 15 mg/dL (7-18); CALCIUM 9.2 mg/dL (8.5-10.1); CARBON DIOXIDE 29.5 mmol/L (21-32); CHLORIDE 103 mmol/L (98-107); COR NA(FOR HYPERGLY) 145 mmol/L (136-145); CREATINE KINASE 434 Units/L (39-308); CREATININE 1.18 mg/dL (0.70-1.30); MAGNESIUM 1.4 mg/dL (1.7-2.9); SODIUM 142 mmol/L (136-145); TOTAL PROTEIN 7.6 g/dL (6.4-8.2); eGFR NON BLACK RACES > 60 (>60)
[2022-03-02] MEDS ORDERED: K-DUR TAB 20 MEQ PO ONE ×2 (16:32→16:47)
[2022-03-02] MEDS ORDERED: TYLENOL 325 MG TAB PO ONE ×2 (16:54→16:56)
[2022-03-02] MEDS ORDERED: MAGNESIUM SULFATE 1 GRAM/100 mL PREMIX 1 G/100 ML BAG IV ONE ×2 (16:55→16:56)
[2022-03-02 20:51] VITALS: BMI 45.8
[2022-03-02] MEDS: DESYREL PO SCH (22:09)
[2022-03-02] MEDS: HYDROCHLOROTHIAZIDE 25 MG TAB PO SCH (22:09)
[2022-03-02] MEDS: NEURONTIN CAP 300 MG PO SCH (22:10)
[2022-03-02] MEDS: ZESTRIL TAB 10 MG PO SCH (22:11)
[2022-03-02] MEDS: ROBAXIN PO SCH (22:11)
[2022-03-02] MEDS: ZOLOFT PO SCH (22:11)
[2022-03-02] MEDS: PROTONIX TAB 40 MG PO SCH (22:11)
[2022-03-03] MEDS ORDERED: MICRO K EXTEN CAP 10 MEQ PO PRN (02:54)
[2022-03-03] MEDS ORDERED: KLOR-CON PO PRN (02:54)
[2022-03-03] MEDS ORDERED: K-RIDER 10 MEQ/NS 100 ML 10 MEQ/100 ML BAG IV PRN (02:54)
[2022-03-03] MEDS ORDERED: POTASSIUM CHL 60 MEQ/NS 0.45% 500 ML IV PRN (02:54)
[2022-03-03] MEDS ORDERED: POTASSIUM CHLORIDE LIQ 20 MEQ UDC PO PRN (02:54)
[2022-03-03] MEDS ORDERED: K-DUR TAB 20 MEQ PO PRN (02:54)
[2022-03-03] MEDS ORDERED: POTASSIUM CHL 40 MEQ/NS 0.45% 500 ML IV PRN (02:54)
[2022-03-03 05:33] LABS: BASOPHILS # (AUTO) 0.1 X10^3/uL (0.0-0.1); BASOPHILS % (AUTO) 0.4 % (0.2-1.0); HEMATOCRIT 39.1 % (42.0-54.0); HEMOGLOBIN 13.4 g/dL (13.5-18.0); LYMPHOCYTES # (AUTO) 4.1 X10^3/uL (1.3-2.9); LYMPHOCYTES % (AUTO) 28.1 % (21.0-51.0); MEAN CORPUSCULAR HEMOGLOBIN 29.9 pg (27.0-34.0); MEAN CORPUSCULAR HGB CONC 34.2 g/dL (33.0-35.0); MEAN CORPUSCULAR VOLUME 87.5 fL (80.0-100.0); MEAN PLATELET VOLUME 10.6 fL (7.4-11.0); MONOCYTES # (AUTO) 1.3 x10^3/uL (0.3-0.8); MONOCYTES % (AUTO) 8.9 % (0.0-13.0); NEUTROPHILS # (AUTO) 8.2 x10^3/uL (2.2-4.8); NEUTROPHILS % (AUTO) 55.6 % (42.0-75.0); RED BLOOD COUNT 4.47 X10^6/uL (4.7-6.0); RED CELL DISTRIBUTION WIDTH 15.9 % (11.6-16.5); WHITE BLOOD COUNT 14.8 X10^3/uL (3.6-10.0)
[2022-03-03 05:48] LABS: ALANINE AMINOTRANSFERASE 35 Units/L (12-78); ALKALINE PHOSPHATASE 50 Units/L (46-116); ASPARTATE AMINO TRANSFERASE 27 Units/L (15-37); BLOOD UREA NITROGEN 13 mg/dL (7-18); CALCIUM 8.7 mg/dL (8.5-10.1); CARBON DIOXIDE 31.2 mmol/L (21-32); CHLORIDE 103 mmol/L (98-107); COR CA(FOR HYPOALB) 9.5 mg/dL (8.5-10.1); COR NA(FOR HYPERGLY) 144 mmol/L (136-145); CREATINE KINASE 287 Units/L (39-308); MAGNESIUM 1.4 mg/dL (1.7-2.9); SODIUM 143 mmol/L (136-145); eGFR NON BLACK RACES > 60 (>60)
[2022-03-03] MEDS: MAGNESIUM SULFATE 1 GRAM/100 mL PREMIX 1 G/100 ML BAG IV PRN ×6 (07:29→17:35)
[2022-03-03] MEDS ORDERED: ASPIRIN PO SCH ×2 (09:00→21:00)
[2022-03-03] MEDS ORDERED: ZOLOFT ONE ×2 (09:04→20:42)
[2022-03-03] MEDS: K-DUR TAB 20 MEQ PO SCH (09:18)
[2022-03-03] MEDS: ZYLOPRIM PO SCH (09:19)
[2022-03-03] MEDS: ZESTRIL TAB 10 MG PO SCH (09:19)
[2022-03-03] MEDS: NEURONTIN CAP 300 MG PO SCH ×2 (09:20→20:51)
[2022-03-03] MEDS: ZOLOFT PO SCH ×2 (09:20→20:51)
[2022-03-03] MEDS: HYDROCHLOROTHIAZIDE 25 MG TAB PO SCH (09:36)
[2022-03-03] MEDS: ROBAXIN PO SCH ×2 (10:30→20:51)
[2022-03-03 11:06] LABS: BILIRUBIN,URINE NEGATIVE (NEGATIVE); BLOOD/HEMOGLOBIN,URINE NEGATIVE (NEGATIVE); GLUCOSE, URINE NEGATIVE (NEGATIVE); KETONES,URINE NEGATIVE (NEGATIVE); LEUKOCYTE ESTERASE ,URINE NEGATIVE (NEGATIVE); NITRITES,URINE NEGATIVE (NEGATIVE); PROTEIN,URINE 3+ (NEGATIVE); UROBILINOGEN,URINE NORMAL (NORMAL)
[2022-03-03 11:07] LABS: APPEARANCE,URINE CLEAR (CLEAR); COLOR,URINE YELLOW (YELLOW)
[2022-03-03 11:31] LABS: BACTERIA,URINE TRACE /HPF (NEGATIVE); RBC,URINE 0-2 /HPF (0-3); SQUAMOUS EPITHELIAL CELL,UR RARE /HPF (NEGATIVE)
[2022-03-03 11:32] LABS: HYALINE CASTS, URINE MODERATE /LPF (NEGATIVE)
--- NOTE | 2022-03-03 13:33 | DR.H&P ---
H&P - History & Physical for Day of: H&P Date: 03/02/22 - Chief Complaint Chief Complaint: CHEST PAIN, PALPITATIONS - History of Present Illness History of Present Illness: PT IS 51 WM ER ADMISSION WITH CO CHEST PAIN, FELT LIKE HEAVY WEIGHT ON IS CHEST. PT HAS PMH OF HTN AND SARCOIDOSIS. PT HAD CE AND EKG IN ER. PT WAS ADMITTED FOR TREATMENT AND EVALUATION OF ACUTE ILLNESS. - Past Medical History Past Medical History: Anxiety, Depression, Diabetes, Dyslipidemia, Hypertension, Sleep Apnea Additional Medical History: SARCOIDOSIS, BLOOD DISORDER/LEUKOCYTOSIS OF UO - Past Surgical History Surgical History: Spleenectomy, Tonsillectomy - Family History Family Medical History: Cancer - Social History Does patient currently use any type of tobacco product: No Have you used tobacco products in the last 12 months: No Type of Tobacco Use: Cigarettes Does any household member use tobacco: No Alcohol Use: None Drug Use: None - Medications Home Medications: codeine Allergy (Verified 03/22/19 08:05) niacin Allergy (Verified 11/22/20 21:13) CONTINUE taking the following medications carvedilol 25 mg tablet 25 mg PO BID 03/03/22 [History] chlorthalidone 25 mg tablet 25 mg PO QDAY 03/03/22 [History] metformin 500 mg tablet 500 mg PO QDAY 03/03/22 [History] - Review of Systems Constitutional: Weakness Eyes: No Symptoms Reported ENT: No Symptoms Reported Respiratory: SOB with Excertion Cardiovascular: Chest Pain, Palpitations Gastrointestinal: No Symptoms Reported Genitourinary: No Symptoms Reported Musculoskeletal: No Symptoms Reported Skin: No Symptoms Reported Neurological: No Symptoms Reported - Physical Exam Vital Signs: Temperature 97.6 F Pulse Rate [Right] 71 Pulse Rate 77 Respiratory Rate 16 Blood Pressure [Right Arm] 149/88 Blood Pressure [Left Arm] 168/91 Blood Pressure 180/98 O2 Sat by Pulse Oximetry 93 Oriented: Normal Eyes: Normal Ear: Normal Nose: Normal Throat: Normal Respiratory: RLL Diminished, LLL Diminished Cardiovascular: Normal, Edema : Normal Auscultation: Bowel Sounds: Normal Palpation: Normal, Other (ABDOMINAL DISTENTION) Tenderness: Normal Skin: Decreased Turgur Musculoskeletal: Back:Lumbar Psychiatric: Anxiety Affect: Anxious Speech Pattern: Clear, Appropriate - Assessment/Plan (1) Chest pain Status: Acute Plan: ADMIT, SERIAL CE AND EKG. BP CONTROL, CXR ON ADMISSION. STRICT I&OS\VERIFY HOME MEDICATION (2) Hyponatremia Status: Acute (3) Sarcoidosis Status: Acute (4) Hypokalemia Status: Acute (5) Hypertension Status: Acute (6) Hypomagnesemia Status: Acute - Allergies Allergies/Adverse Reactions: Allergies Allergy/AdvReac Type Severity Reaction Status Date / Time codeine Allergy Verified 03/22/19 08:05 niacin Allergy Verified 11/22/20 21:13
[2022-03-03] MEDS: COREG TAB 25 MG PO SCH ×2 (14:31→20:52)
[2022-03-03] MEDS: NS 1,000 ML IV 1,000 ML IV SCH (14:31)
[2022-03-03] MEDS: TYLENOL 325 MG TAB PO PRN (16:16)
[2022-03-03] MEDS: PROTONIX TAB 40 MG PO SCH (20:51)
[2022-03-03] MEDS: DESYREL PO SCH (20:52)
[2022-03-03] MEDS: ZESTRIL TAB 40 MG PO SCH (20:53)
[2022-03-04] MEDS: TYLENOL 325 MG TAB PO PRN (02:14)
[2022-03-04] MEDS: NS 1,000 ML IV 1,000 ML IV SCH (03:25)
[2022-03-04 05:14] LABS: BASOPHILS # (AUTO) 0.2 X10^3/uL (0.0-0.1); BASOPHILS % (AUTO) 1.7 % (0.2-1.0); EOSINOPHILS % (AUTO) 7.2 % (0.9-2.9); HEMATOCRIT 38.6 % (42.0-54.0); HEMOGLOBIN 13.2 g/dL (13.5-18.0); LYMPHOCYTES # (AUTO) 3.9 X10^3/uL (1.3-2.9); LYMPHOCYTES % (AUTO) 27.1 % (21.0-51.0); MEAN CORPUSCULAR HEMOGLOBIN 29.7 pg (27.0-34.0); MEAN CORPUSCULAR HGB CONC 34.2 g/dL (33.0-35.0); MEAN CORPUSCULAR VOLUME 86.7 fL (80.0-100.0); MONOCYTES # (AUTO) 1.1 x10^3/uL (0.3-0.8); MONOCYTES % (AUTO) 7.6 % (0.0-13.0); NEUTROPHILS # (AUTO) 8.2 x10^3/uL (2.2-4.8); NEUTROPHILS % (AUTO) 56.4 % (42.0-75.0); RED BLOOD COUNT 4.45 X10^6/uL (4.7-6.0); RED CELL DISTRIBUTION WIDTH 16.2 % (11.6-16.5); WHITE BLOOD COUNT 14.6 X10^3/uL (3.6-10.0)
[2022-03-04 05:38] LABS: ALANINE AMINOTRANSFERASE 36 Units/L (12-78); ALBUMIN 2.9 g/dL (3.4-5.0); ALKALINE PHOSPHATASE 46 Units/L (46-116); ASPARTATE AMINO TRANSFERASE 26 Units/L (15-37); BLOOD UREA NITROGEN 13 mg/dL (7-18); CALCIUM 8.3 mg/dL (8.5-10.1); CARBON DIOXIDE 32.8 mmol/L (21-32); CHLORIDE 102 mmol/L (98-107); COR CA(FOR HYPOALB) 9.2 mg/dL (8.5-10.1); COR NA(FOR HYPERGLY) 142 mmol/L (136-145); CREATINE KINASE 181 Units/L (39-308); CREATININE 0.86 mg/dL (0.70-1.30); SODIUM 141 mmol/L (136-145); TOTAL PROTEIN 6.9 g/dL (6.4-8.2); eGFR NON BLACK RACES > 60 (>60)
--- NOTE | 2022-03-04 06:01 | RAD ---
Chest AP portableIndication: DyspneaCOMPARISONAugust [address] from June 11, 2019FINDINGS: There is no pneumothorax or effusion. Heart size is prominent. No dense consolidation seen.IMPRESSIONCardiomegaly without new acute chest process or change from the prior. Mediastinal adenopathy again suspected, as seen on CT from 2018.Electronically signed by: QUAN CLARK (Mar 04, 2022 05:59:49)
[2022-03-04] MEDS: MAGNESIUM SULFATE 1 GRAM/100 mL PREMIX 1 G/100 ML BAG IV PRN ×2 (07:47→10:00)
[2022-03-04] MEDS ORDERED: ZOLOFT ONE (08:43)
[2022-03-04] MEDS: ZESTRIL TAB 40 MG PO SCH (09:00)
[2022-03-04] MEDS: COREG TAB 25 MG PO SCH (09:00)
[2022-03-04] MEDS: ZOLOFT PO SCH (09:00)
[2022-03-04] MEDS: ROBAXIN PO SCH (09:00)
[2022-03-04] MEDS: K-DUR TAB 20 MEQ PO SCH (09:00)
[2022-03-04] MEDS: NEURONTIN CAP 300 MG PO SCH (09:00)
[2022-03-04] MEDS: ZYLOPRIM PO SCH (09:49)
[2022-03-04] MEDS ORDERED: NORVASC TAB 5 MG PO SCH (11:00)
[2022-03-04 11:39] VITALS: BP 154/81
== END 2022-03-04 11:50 | disposition home or self-care (01) ==
LOC: ER 15:16 → ICU 15:16
PROVIDERS: ADMIT Internal Medicine; ATTEND Internal Medicine
DX: R94.31 Abnormal electrocardiogram [ECG] [EKG]; F41.8 Other specified anxiety disorders; Z20.822 Contact with and (suspected) exposure to COVID-19; E83.42 Hypomagnesemia; E87.1 Hypo-osmolality and hyponatremia; E87.6 Hypokalemia; R06.02 Shortness of breath; M62.82 Rhabdomyolysis; E11.65 Type 2 diabetes mellitus with hyperglycemia; D86.89 Sarcoidosis of other sites; R07.2 Precordial pain; E86.0 Dehydration

== ENCOUNTER 2022-12-05 17:47 | Observation (INO) ==
[2022-12-05 17:56] VITALS: BMI 44.0
--- NOTE | 2022-12-05 18:28 | DR.GENAD ---
HPI <Jesus Maguire - Last Filed: 12/06/22 08:48> Time Seen Time Seen by Provider: 12/05/22 18:25 PCP Primary Care Physician: KRAIG OROURKE Complaint/Symptoms Chief Complaint Doctors Comments: 52 y/o male presents for evaluation. Developed abscess of his right forearm over the past several days. Had it drained yesterday. Developed a fever today. + nausea, no vomiting. Denies URI symptoms. + muscle aches. No vomiting or diarrhea. + urinating frequently. H/o splenectomy in the past. Chief Complaint:: PT C/O ABCESS TO HIS RIGHT ELBOW QUARTER SIZE, PT WAS SEEN BY HIS PCP I/D PERFORMED AND PT PLACED ON DOXYCYCLINE , PT REPORTS > PAIN, FEVER OF 101.9,,BR Self Treatment fo Chief Complaint: TYLENOL COVID-19 Coronavirus risk:travel/contact w/high risk person: No Has patient experienced Coronavirus symptoms: No Source History Provided: Patient Mode of Arrival Mode of Arrival: Ambulatory Timing Onset of Chief Complaint: 11/28/22 PMH <Jesus Maguire - Last Filed: 12/06/22 08:48> PMH Past Medical History: Yes Past Medical History: Anxiety, Diabetes, Dyslipidemia, Hypertension and Sleep Apnea Past Medical History Comment: Sarcoidosis, Neuropathy Past Surgical History: Yes Surgical History: Spleenectomy and Tonsillectomy Family History History of Family Medical Conditions: Yes Family Medical History: Cancer Social History Does patient currently use any type of tobacco product: No Have you used tobacco products in the last 12 months: No Type of Tobacco Use: None Does any household member use tobacco: No Alcohol Use: None Do you use any recreational Drugs:: No Lives With: Family Lives Where: Home Travel Risk Coronavirus risk:travel/contact w/high risk person: No Has patient experienced Coronavirus symptoms: No Infectious screening In the last 2 months have you had wt loss of >10#?: NO Have you had fever, night sweats or hemotysis?: No Have you traveled outside the country in the last 6 months?: No Isolation: Standard ROS <Jesus Maguire - Last Filed: 12/06/22 08:48> Review of Systems Constitutional: Fever Eyes: No Symptoms Reported ENTM: No Symptoms Reported Respiratoy: No Symptoms Reported Cardiovascular: No Symptoms Reported Gastrointestinal/Abdominal: Nausea Genitourinary: No Symptoms Reported Neurological: No Symptoms Reported Musculoskeletal: No Symptoms Reported Integumentary: See HPI Hematologic/Lymphatic: No Symptoms Reported All Other Systems: Reviewed and Negative <Albertina Diamond - Last Filed: 12/06/22 07:24> Review of Systems Musculoskeletal: Forearm (Rt proximal Forearm has erythema edema at the wound, warmth in the surrounding skin.No discharge from tj) Endocrine: No Symptoms Reported Psychiatric: No Symptoms Reported PE <Jesus Maguire - Last Filed: 12/06/22 08:48> Vital Signs Vitals: Temperature 99.7 F Pulse Rate 107 Respiratory Rate 22 Blood Pressure [Right Arm] 124/67 Blood Pressure 115/71 O2 Sat by Pulse Oximetry 99 General General Appearance: Alert and In No Apparent Distress Eyes Eye exam: PERRL and EOMI ENT ENT Exam: Normal Oropharynx and Mucous Membranes Moist Neck Neck Exam: Normal Inspection Respiratory Respiratory Exam: Normal Lung Sounds Bilat; negative Accessory Muscle Use or Respiratory Distress Cardiovascular Cardiovascular Exam: Regular Rate, Normal Rhythm and Normal Heart Sounds Abdominal Exam Abdominal Exam: Normal Bowel Sounds and Soft; negative Tenderness Extremities Extremities Exam: Edema (bilateral lower exts) Neurologic Neurological Exam: Alert, Oriented X3 and CN II-XII Intact; negative Motor Sensory Deficit Skin Skin Exam: Warm and Dry Other Exam Other Exam: R forearm - + diffuse swelling, with faint erythematous blush, + 2 mm open wound of dorsal mid forearm, + small amount of purulent material expresses. <Albertina Diamond - Last Filed: 12/06/22 07:24> Vital Signs Vitals: Temperature 99.7 F Pulse Rate 107 Respiratory Rate 22 Blood Pressure [Right Arm] 124/67 Blood Pressure 115/71 O2 Sat by Pulse Oximetry 99 General Limitations: No Limitations Head Head Exam: Normal Inspection ENT External Ear Exam: Normal External Inspection TM/Canal Exam: Bilateral: Normal Nose Exam: Normal Nose Exam Mouth Exam: Normal Inspection Throat Exam: Normal Inspection Chest Chest Inspection: Normal Inspection Respiratory Respiratory Exam: Bilateral: Clear to Auscultation Back Back Exam: Normal Inspection Psychiatric Psychiatric Exam: Normal Affect and Normal Mood <Albertina WestgginsLilyCarlos - Last Filed: 12/06/22 07:24> Additional Information Findings: Cellulitis, Abscess(Rt forearm) COURSE <Jesus Maguire - Last Filed: 12/06/22 08:48> Treatment Treatment: 52 y/o male with R forearm cellulitis/abscess. Drained yesterday, on PO antibiotic. + fever today. W/u initiated. <Albertina Diamond - Last Filed: 12/06/22 07:24> Treatment Treatment: 52 y/o male with R forearm cellulitis/abscess. Drained yesterday by Pcp, on PO antibiotic given doxycyline. + Fever today. W/u initiated. Patient has a cellulitis in his proximal Rt forearm and he is Rt handed.Patient was given cefepime 2 g iv after blood cx were collected. Patient also received NS 1 liter iv bolus. 22:45 Patient was accepted by Dr Henry to [facility] for further evaluation. ROR <Jesus Andrez - Last Filed: 12/06/22 08:48> Labs Reviewed Laboratory Results Reviewed?: Yes Result Diagrams: 12/06/22 05:41 12/06/22 05:41 Laboratory: 12/05/22 19:55 Arm - Right Wound Gram Stain - Final WBC 22.9 X10^3/uL (3.6-10.0) H 12/05/22 19:15 RBC 4.48 X10^6/uL (4.7-6.0) L 12/05/22 19:15 Hgb 13.0 g/dL (13.5-18.0) L 12/05/22 19:15 Hct 38.6 % (42.0-54.0) L 12/05/22 19:15 MCV 86.1 fL (80.0-100.0) 12/05/22 19:15 MCH 29.1 pg (27.0-34.0) 12/05/22 19:15 MCHC 33.7 g/dL (33.0-35.0) 12/05/22 19:15 RDW 16.2 % (11.6-16.5) 12/05/22 19:15 Plt Count 239 X10^3/uL (150.0-450.0) 12/05/22 19:15 Plt Count Comment Adequate (ADEQUATE) 12/05/22 19:15 MPV 9.9 fL (7.4-11.0) 12/05/22 19:15 Neut % (Auto) 65.7 % (42.0-75.0) 12/05/22 19:15 Lymph % (Auto) 20.5 % (21.0-51.0) L 12/05/22 19:15 [place] % (Auto) 10.4 % (0.0-13.0) 12/05/22 19:15 Eos % (Auto) 3.1 % (0.9-2.9) H 12/05/22 19:15 Baso % (Auto) 0.3 % (0.2-1.0) 12/05/22 19:15 Neut # (Auto) 15.1 x10^3/uL (2.2-4.8) H 12/05/22 19:15 Lymph # (Auto) 4.7 X10^3/uL (1.3-2.9) H 12/05/22 19:15 [place] # (Auto) 2.4 x10^3/uL (0.3-0.8) H 12/05/22 19:15 Eos # (Auto) 0.7 x10^3/uL (0.0-0.2) H 12/05/22 19:15 Baso # (Auto) 0.1 X10^3/uL (0.0-0.1) 12/05/22 19:15 Absolute Nucleated RBC 0.0 /100WBC 12/05/22 19:15 Total Counted 100 12/05/22 19:15 Neutrophils % (Manual) 72 % (39-76) 12/05/22 19:15 Lymphocytes % (Manual) 17 % (13-43) 12/05/22 19:15 Monocytes % (Manual) 8 % (4-9) 12/05/22 19:15 Eosinophils % (Manual) 3 % (0-6) 12/05/22 19:15 Smudge Cells Few noted on slide 12/05/22 19:15 Plt Morphology Comment Normal (NORMAL) 12/05/22 19:15 RBC Morphology Normal (NORMAL) 12/05/22 19:15 Sodium 138 mmol/L (136-145) 12/05/22 19:15 Corrected Sodium TNP 12/05/22 19:15 Potassium 3.6 mmol/L (3.5-5.1) 12/05/22 19:15 Chloride 101 mmol/L (98-107) 12/05/22 19:15 Carbon Dioxide 29.8 mmol/L (21-32) 12/05/22 19:15 BUN 21 mg/dL (7-18) H 12/05/22 19:15 Creatinine 1.13 mg/dL (0.70-1.30) 12/05/22 19:15 Est GFR (MDRD) Af Amer > 60 (>60) 12/05/22 19:15 Est GFR (MDRD) Non-Af > 60 (>60) 12/05/22 19:15 Glucose 105 mg/dL (65-99) H 12/05/22 19:15 Lactic Acid 0.9 mmol/L (0.4-2.0) 12/05/22 19:15 Calcium 9.2 mg/dL (8.5-10.1) 12/05/22 19:15 Corrected Calcium TNP 12/05/22 19:15 Total Bilirubin 0.60 mg/dL (0.2-1.0) 12/05/22 19:15 AST 25 Units/L (15-37) 12/05/22 19:15 ALT 39 Units/L (12-78) 12/05/22 19:15 Alkaline Phosphatase 43 Units/L (46-116) L 12/05/22 19:15 Total Protein 7.7 g/dL (6.4-8.2) 12/05/22 19:15 Albumin 3.5 g/dL (3.4-5.0) 12/05/22 19:15 Globulin 4.2 g/dL (2.5-4.5) 12/05/22 19:15 Albumin/Globulin Ratio 0.8 Ratio (1.1-2.1) L 12/05/22 19:15 Specimen Type Random urine 12/05/22 19:29 Urine Color Dark yellow (YELLOW) 12/05/22 19:29 Urine Appearance Slightly hazy (CLEAR) 12/05/22 19: Urine pH 5.0 (5.0 - 8.0) 12/05/22 19: Ur Specific [place] 1.020 (1.000-1.030) 12/05/22 19:29 Urine Protein 2+ (NEGATIVE) 12/05/22 19:29 Urine Glucose (UA) Negative (NEGATIVE) 12/05/22 19: Urine Ketones Negative (NEGATIVE) 05/17/23 19:29 Urine Blood Negative (NEGATIVE) 12/05/22 19:29 Urine Nitrite Negative (NEGATIVE) 12/05/22 19:29 Urine Bilirubin Negative (NEGATIVE) 12/05/22 19: Urine Urobilinogen Normal (NORMAL) 12/05/22 19:29 Ur Leukocyte Esterase Negative (NEGATIVE) 12/05/22 19:29 Urine RBC 0-2 /HPF (0-3) 12/05/22 19:29 Urine WBC None seen /HPF (0-5) 12/05/22 19:29 Ur Squamous Epith Cells Few /HPF (NEGATIVE) 12/05/22 19:29 Urine Bacteria Trace /HPF (NEGATIVE) 12/05/22 19: Hyaline Casts Moderate /LPF (NEGATIVE) 12/05/22 19: Urine Mucus Few /HPF (NEGATIVE) 12/05/22 19:29 Ur Culture Indicated? No/not indicated 12/05/22 19:29 SARS-CoV-2 (PCR) Negative (NEGATIVE) 12/05/22 19:22 Influenza Type A (PCR) Negative (NEGATIVE) 12/05/22 19:22 Influenza Type B (PCR) Negative (NEGATIVE) 12/05/22 19:22 RSV (PCR) Negative (NEGATIVE) 12/05/22 19:22 + leukocytosis <Albertina Diamond - Last Filed: 12/06/22 07:24> Labs Reviewed Laboratory: 12/05/22 19:55 Arm - Right Wound Gram Stain - Final WBC 22.9 X10^3/uL (3.6-10.0) H 12/05/22 19:15 RBC 4.48 X10^6/uL (4.7-6.0) L 12/05/22 19:15 Hgb 13.0 g/dL (13.5-18.0) L 12/05/22 19:15 Hct 38.6 % (42.0-54.0) L 12/05/22 19:15 MCV 86.1 fL (80.0-100.0) 12/05/22 19:15 MCH 29.1 pg (27.0-34.0) 12/05/22 19:15 MCHC 33.7 g/dL (33.0-35.0) 12/05/22 19:15 RDW 16.2 % (11.6-16.5) 12/05/22 19:15 Plt Count 239 X10^3/uL (150.0-450.0) 12/05/22 19:15 Plt Count Comment Adequate (ADEQUATE) 12/05/22 19:15 MPV 9.9 fL (7.4-11.0) 12/05/22 19:15 Neut % (Auto) 65.7 % (42.0-75.0) 12/05/22 19:15 Lymph % (Auto) 20.5 % (21.0-51.0) L 12/05/22 19:15 [place] % (Auto) 10.4 % (0.0-13.0) 12/05/22 19:15 Eos % (Auto) 3.1 % (0.9-2.9) H 12/05/22 19:15 Baso % (Auto) 0.3 % (0.2-1.0) 12/05/22 19:15 Neut # (Auto) 15.1 x10^3/uL (2.2-4.8) H 12/05/22 19:15 Lymph # (Auto) 4.7 X10^3/uL (1.3-2.9) H 12/05/22 19:15 [place] # (Auto) 2.4 x10^3/uL (0.3-0.8) H 12/05/22 19:15 Eos # (Auto) 0.7 x10^3/uL (0.0-0.2) H 12/05/22 19:15 Baso # (Auto) 0.1 X10^3/uL (0.0-0.1) 12/05/22 19:15 Absolute Nucleated RBC 0.0 /100WBC 12/05/22 19:15 Total Counted 100 12/05/22 19:15 Neutrophils % (Manual) 72 % (39-76) 12/05/22 19:15 Lymphocytes % (Manual) 17 % (13-43) 12/05/22 19:15 Monocytes % (Manual) 8 % (4-9) 12/05/22 19:15 Eosinophils % (Manual) 3 % (0-6) 12/05/22 19:15 Smudge Cells Few noted on slide 12/05/22 19:15 Plt Morphology Comment Normal (NORMAL) 12/05/22 19:15 RBC Morphology Normal (NORMAL) 12/05/22 19:15 Sodium 138 mmol/L (136-145) 12/05/22 19:15 Corrected Sodium TNP 12/05/22 19:15 Potassium 3.6 mmol/L (3.5-5.1) 12/05/22 19:15 Chloride 101 mmol/L (98-107) 12/05/22 19:15 Carbon Dioxide 29.8 mmol/L (21-32) 12/05/22 19:15 BUN 21 mg/dL (7-18) H 12/05/22 19:15 Creatinine 1.13 mg/dL (0.70-1.30) 12/05/22 19:15 Est GFR (MDRD) Af Amer > 60 (>60) 12/05/22 19:15 Est GFR (MDRD) Non-Af > 60 (>60) 12/05/22 19:15 Glucose 105 mg/dL (65-99) H 12/05/22 19:15 Lactic Acid 0.9 mmol/L (0.4-2.0) 12/05/22 19:15 Calcium 9.2 mg/dL (8.5-10.1) 12/05/22 19:15 Corrected Calcium TNP 12/05/22 19:15 Total Bilirubin 0.60 mg/dL (0.2-1.0) 12/05/22 19:15 AST 25 Units/L (15-37) 12/05/22 19:15 ALT 39 Units/L (12-78) 12/05/22 19:15 Alkaline Phosphatase 43 Units/L (46-116) L 12/05/22 19:15 Total Protein 7.7 g/dL (6.4-8.2) 12/05/22 19:15 Albumin 3.5 g/dL (3.4-5.0) 12/05/22 19:15 Globulin 4.2 g/dL (2.5-4.5) 12/05/22 19:15 Albumin/Globulin Ratio 0.8 Ratio (1.1-2.1) L 12/05/22 19:15 Specimen Type Random urine 12/05/22 19:29 Urine Color Dark yellow (YELLOW) 12/05/22 19:29 Urine Appearance Slightly hazy (CLEAR) 12/05/22 19: Urine pH 5.0 (5.0 - 8.0) 12/05/22 19: Ur Specific [place] 1.020 (1.000-1.030) 12/05/22 19: Urine Protein 2+ (NEGATIVE) 12/05/22 19: Urine Glucose (UA) Negative (NEGATIVE) 12/05/22 19: Urine Ketones Negative (NEGATIVE) 12/05/22 19: Urine Blood Negative (NEGATIVE) 12/05/22 19: Urine Nitrite Negative (NEGATIVE) 12/05/22 19: Urine Bilirubin Negative (NEGATIVE) 12/05/22 19: Urine Urobilinogen Normal (NORMAL) 12/05/22 19: Ur Leukocyte Esterase Negative (NEGATIVE) 12/05/22 19: Urine RBC 0-2 /HPF (0-3) 12/05/22 19: Urine WBC None seen /HPF (0-5) 12/05/22 19: Ur Squamous Epith Cells Few /HPF (NEGATIVE) 12/05/22 19: Urine Bacteria Trace /HPF (NEGATIVE) 12/05/22 19: Hyaline Casts Moderate /LPF (NEGATIVE) 12/05/22 19: Urine Mucus Few /HPF (NEGATIVE) 12/05/22 19:29 Ur Culture Indicated? No/not indicated 12/05/22 19:29 SARS-CoV-2 (PCR) Negative (NEGATIVE) 12/05/22 19:22 Influenza Type A (PCR) Negative (NEGATIVE) 12/05/22 19: Influenza Type B (PCR) Negative (NEGATIVE) 12/05/22 19: RSV (PCR) Negative (NEGATIVE) 12/05/22 19: XRAY X-ray Results: HISTORY PT C/O ABCESS TO HIS RIGHT ELBOW QUARTER SIZE, Relevant Clinical Information STUDY FOREARM, RIGHT COMPARISON FINDINGS No acute cortical disruption or dislocation can be identified. No significant soft tissue swelling or injury can be seen. There is a tiny superficial radiopaque foreign body on the volar aspect of the distal forearm. IMPRESSION Tiny radiopaque foreign body distal forearm. No acute bony abnormality Electronically signed by: Stuart Solis (December 05, 2022 23:35:55) Opioid <Jesus Maguire - Last Filed: 12/06/22 08:48> Opioid Risk Tool Age (Flo box if 16-45): No History of Preadolescent Sexual Abuse: No Total: 0 Total Score Risk Category: Low Risk Copyright: Martinez BISWAS predicting aberrant behaviors <Albertina RodrickCarlos - [facility] Filed: 12/06/22 07:24> Opioid Risk Tool Total: 0 Total Score Risk Category: Low Risk Discharge Plan Diagnosis Discharge Problem: Cellulitis, Pain in right forearm Discharge Plan Patient Disposition: 09 ADMITTED INPATIENT Condition: Stable
[2022-12-05] MEDS ORDERED: NS 1,000 ML IV 1,000 ML IV ONE (18:44)
[2022-12-05] MEDS ORDERED: NS 1,000 ML IV 1,000 ML ONE ×2 (18:57→22:31)
[2022-12-05 19:31] LABS: MONOCYTES # (AUTO) 2.4 x10^3/uL (0.3-0.8)
[2022-12-05 19:37] LABS: BASOPHILS # (AUTO) 0.1 X10^3/uL (0.0-0.1); BASOPHILS % (AUTO) 0.3 % (0.2-1.0); EOSINOPHILS # (AUTO) 0.7 x10^3/uL (0.0-0.2); EOSINOPHILS % (AUTO) 3.1 % (0.9-2.9); HEMATOCRIT 38.6 % (42.0-54.0); LYMPHOCYTES # (AUTO) 4.7 X10^3/uL (1.3-2.9); LYMPHOCYTES % (AUTO) 20.5 % (21.0-51.0); MEAN CORPUSCULAR HEMOGLOBIN 29.1 pg (27.0-34.0); MEAN CORPUSCULAR HGB CONC 33.7 g/dL (33.0-35.0); MEAN CORPUSCULAR VOLUME 86.1 fL (80.0-100.0); MEAN PLATELET VOLUME 9.9 fL (7.4-11.0); MONOCYTES % (AUTO) 10.4 % (0.0-13.0); NEUTROPHILS # (AUTO) 15.1 x10^3/uL (2.2-4.8); NEUTROPHILS % (AUTO) 65.7 % (42.0-75.0); PLATELET COUNT 239 X10^3/uL (150.0-450.0); RED BLOOD COUNT 4.48 X10^6/uL (4.7-6.0); RED CELL DISTRIBUTION WIDTH 16.2 % (11.6-16.5); WHITE BLOOD COUNT 22.9 X10^3/uL (3.6-10.0)
[2022-12-05 19:37] LABS: BILIRUBIN,URINE NEGATIVE (NEGATIVE); BLOOD/HEMOGLOBIN,URINE NEGATIVE (NEGATIVE); GLUCOSE, URINE NEGATIVE (NEGATIVE); KETONES,URINE NEGATIVE (NEGATIVE); LEUKOCYTE ESTERASE ,URINE NEGATIVE (NEGATIVE); NITRITES,URINE NEGATIVE (NEGATIVE); PROTEIN,URINE 2+ (NEGATIVE); UROBILINOGEN,URINE NORMAL (NORMAL)
[2022-12-05 19:41] LABS: ALANINE AMINOTRANSFERASE 39 Units/L (12-78); ALBUMIN 3.5 g/dL (3.4-5.0); ALKALINE PHOSPHATASE 43 Units/L (46-116); ASPARTATE AMINO TRANSFERASE 25 Units/L (15-37); BLOOD UREA NITROGEN 21 mg/dL (7-18); CALCIUM 9.2 mg/dL (8.5-10.1); CARBON DIOXIDE 29.8 mmol/L (21-32); CHLORIDE 101 mmol/L (98-107); CREATININE 1.13 mg/dL (0.70-1.30); GLUCOSE 105 mg/dL (65-99); POTASSIUM 3.6 mmol/L (3.5-5.1); SODIUM 138 mmol/L (136-145); TOTAL PROTEIN 7.7 g/dL (6.4-8.2); eGFR NON BLACK RACES > 60 (>60)
[2022-12-05 19:45] LABS: LACTIC ACID 0.9 mmol/L (0.4-2.0)
[2022-12-05 19:45] LABS: APPEARANCE,URINE SLIGHTLY HAZY (CLEAR); COLOR,URINE DARK YELLOW (YELLOW)
[2022-12-05 19:46] LABS: BACTERIA,URINE TRACE /HPF (NEGATIVE); RBC,URINE 0-2 /HPF (0-3); SQUAMOUS EPITHELIAL CELL,UR FEW /HPF (NEGATIVE)
[2022-12-05 19:47] LABS: HYALINE CASTS, URINE MODERATE /LPF (NEGATIVE)
[2022-12-05 20:31] LABS: PLATELET MORPHOLOGY COMMENT NORMAL (NORMAL)
[2022-12-05 20:32] LABS: SMUDGE CELLS FEW NOTED ON SLIDE
[2022-12-05] MEDS ORDERED: MAXIPIME VIAL 1 GRAM ONE (22:31)
[2022-12-05] MEDS ORDERED: NS 100 ML IV 100 ML ONE (22:31)
--- NOTE | 2022-12-05 23:37 | RAD ---
HISTORYPT C/O ABCESS TO HIS RIGHT ELBOW QUARTER SIZE, Relevant Clinical InformationSTUDYFOREARM, RIGHTCOMPARISONFINDINGSNo acute cortical disruption or dislocation can be identified. No significant soft tissue swelling or injury can be seen. There is a tiny superficial radiopaque foreign body on the volar aspect of the distal forearm.IMPRESSIONTiny radiopaque foreign body distal forearm.No acute bony abnormalityElectronically signed by: Stuart Solis (December 05, 2022 23:35:55)
[2022-12-06 06:14] LABS: BASOPHILS # (AUTO) 0.2 X10^3/uL (0.0-0.1); EOSINOPHILS # (AUTO) 0.8 x10^3/uL (0.0-0.2); EOSINOPHILS % (AUTO) 4.1 % (0.9-2.9); HEMATOCRIT 36.1 % (42.0-54.0); HEMOGLOBIN 12.5 g/dL (13.5-18.0); LYMPHOCYTES # (AUTO) 3.6 X10^3/uL (1.3-2.9); LYMPHOCYTES % (AUTO) 17.8 % (21.0-51.0); MEAN CORPUSCULAR HEMOGLOBIN 29.7 pg (27.0-34.0); MEAN CORPUSCULAR HGB CONC 34.7 g/dL (33.0-35.0); MEAN CORPUSCULAR VOLUME 85.7 fL (80.0-100.0); MEAN PLATELET VOLUME 10.3 fL (7.4-11.0); MONOCYTES # (AUTO) 2.3 x10^3/uL (0.3-0.8); MONOCYTES % (AUTO) 11.2 % (0.0-13.0); NEUTROPHILS # (AUTO) 13.5 x10^3/uL (2.2-4.8); NEUTROPHILS % (AUTO) 65.9 % (42.0-75.0); PLATELET COUNT 241 X10^3/uL (150.0-450.0); RED BLOOD COUNT 4.22 X10^6/uL (4.7-6.0); RED CELL DISTRIBUTION WIDTH 16.3 % (11.6-16.5); WHITE BLOOD COUNT 20.4 X10^3/uL (3.6-10.0)
[2022-12-06 06:38] LABS: ALANINE AMINOTRANSFERASE 35 Units/L (12-78); ALBUMIN 3.2 g/dL (3.4-5.0); ALKALINE PHOSPHATASE 38 Units/L (46-116); ASPARTATE AMINO TRANSFERASE 22 Units/L (15-37); BLOOD UREA NITROGEN 19 mg/dL (7-18); CALCIUM 8.8 mg/dL (8.5-10.1); CARBON DIOXIDE 27.3 mmol/L (21-32); CHLORIDE 101 mmol/L (98-107); COR CA(FOR HYPOALB) 9.4 mg/dL (8.5-10.1); COR NA(FOR HYPERGLY) 138 mmol/L (136-145); CREATININE 0.91 mg/dL (0.70-1.30); GLUCOSE 119 mg/dL (65-99); POTASSIUM 3.4 mmol/L (3.5-5.1); SODIUM 138 mmol/L (136-145); TOTAL PROTEIN 7.4 g/dL (6.4-8.2); eGFR NON BLACK RACES > 60 (>60)
[2022-12-06] MEDS ORDERED: KLOR-CON PO PRN (07:06)
[2022-12-06] MEDS ORDERED: POTASSIUM CHLORIDE LIQ 20 MEQ UDC PO PRN (07:06)
[2022-12-06] MEDS ORDERED: POTASSIUM CHL 60 MEQ/NS 0.45% 500 ML IV PRN (07:06)
[2022-12-06] MEDS ORDERED: POTASSIUM CHL 40 MEQ/NS 0.45% 500 ML IV PRN (07:06)
[2022-12-06] MEDS ORDERED: MICRO K EXTEN CAP 10 MEQ PO PRN (07:06)
[2022-12-06] MEDS ORDERED: K-RIDER 10 MEQ/NS 100 ML 10 MEQ/100 ML BAG IV PRN (07:06)
[2022-12-06] MEDS ORDERED: ZOLOFT ONE ×2 (08:09→19:21)
[2022-12-06] MEDS: CHLORTHALIDONE PO SCH (08:15)
[2022-12-06] MEDS: COREG TAB 25 MG PO SCH ×2 (08:15→21:20)
[2022-12-06] MEDS: NEURONTIN CAP 300 MG PO SCH ×2 (08:15→21:21)
[2022-12-06] MEDS: ZESTRIL TAB 10 MG PO SCH ×2 (08:15→21:19)
[2022-12-06] MEDS: ZYLOPRIM PO SCH (08:15)
[2022-12-06] MEDS: NORVASC TAB 5 MG PO SCH (08:16)
[2022-12-06] MEDS: ZOLOFT PO SCH ×2 (08:16→21:20)
[2022-12-06] MEDS: K-DUR TAB 20 MEQ PO PRN (08:16)
[2022-12-06] MEDS ORDERED: PHARMACY CONSULT - VANCOMYCIN XX SCH (09:00)
[2022-12-06] MEDS ORDERED: MAXIPIME VIAL 2 GRAMS 2 G in NS 100 ML IV 100 ML IV SCH (09:00)
[2022-12-06] MEDS: NS 1,000 ML IV 1,000 ML IV SCH (10:21)
[2022-12-06] MEDS: PATIENT'S HOME MEDICATION (Icosapent Ethyl [Vascepa] 1 gram capsule) PO SCH ×2 (10:21→21:01)
[2022-12-06] MEDS: VANCOMYCIN IV *PREMIX 1 G/200 ML BAG 1 G/200 ML PIGGYBACK IV SCH ×3 (10:26→21:17)
[2022-12-06] MEDS: MAGNESIUM SULFATE 1 GRAM/100 mL PREMIX 1 G/100 ML BAG IV PRN ×4 (12:04→20:15)
[2022-12-06] MEDS: ZOSYN VIAL 3.375 GRAMS 3.375 G in NS 100 ML IV 100 ML IV SCH ×3 (12:04→21:17)
[2022-12-06] MEDS ORDERED: STERILE WATER IRRIGATION IR ONE (12:53)
--- NOTE | 2022-12-06 15:13 | DR.H&P ---
H&P History & Physical for Day of: H&P Date: 12/06/22 Chief Complaint Chief Complaint: Right forearm abscess Allergies Allergies Allergy/AdvReac Type Severity Reaction Status Date / Time codeine Allergy Verified 12/05/22 17:50 niacin Allergy Verified 12/05/22 17:50 History of Present Illness History of Present Illness: Pt with history of Hypertension, Diabetes, Sarcoidosis, presenting with worsening abscess on his right forearm. He reports having it lanced by his pcp on Saturday and was prescribed doxycycline to take. He reports wound has been draining more yellowish discharge. Reports some pain and redness of skin. Labs/imaging: Wbc 20.4, Hgb 12.5, Plt 241, Na 138, K 3.4, Creatinine 0.91, Glucose 119, Mag 1.2, Blood/wound culture pending, UA negative, XR Right forearm: no acute bony abnormality. Pt was started on antibiotics cefipime in ED. Will change antibiotics to IV vancomycin and zosyn. Consult general surgery-Dr Dash for further evaluation. Replete magnesium and potassium per protcol. Restart home medications. Continue to closely monitor and follow up labs. Past Medical History Past Medical History: Anxiety, Diabetes, Dyslipidemia, Hypertension and Sleep Apnea Additional Medical History: SARCOIDOSIS, BLOOD DISORDER/LEUKOCYTOSIS OF UO Past Surgical History Surgical History: Ortho Surgery, Spleenectomy and Tonsillectomy Family History Family Medical History: [place] Social History Does patient currently use any type of tobacco product: No Have you used tobacco products in the last 12 months: No Type of Tobacco Use: None Does any household member use tobacco: No Alcohol Use: None Drug Use: None Medications Home Medications: codeine Allergy (Verified 12/05/22 17:50) niacin Allergy (Verified 12/05/22 17:50) CONTINUE taking the following medications amlodipine 10 mg tablet 1 tab PO QDAY 12/06/22 [History] chlorthalidone 25 mg tablet 25 mg PO QDAY 12/06/22 [History] doxycycline hyclate 100 mg tablet 1 tab PO BID 12/06/22 [History] icosapent ethyl 1 gram capsule (Vascepa) 2 cap PO BID 12/06/22 [History] methocarbamol 750 mg tablet 1 tab PO Q4HHR 12/06/22 [History] valsartan 320 mg tablet 1 tab PO QDAY 12/06/22 [History] Labs Result Diagrams: 12/06/22 05:41 12/06/22 11:45 Labs: 12/05/22 19:55 Arm - Right Wound Gram Stain - Final 12/05/22 19:55 Arm - Right Wound Culture - Preliminary Laboratory WBC 20.4 X10^3/uL (3.6-10.0) H 12/06/22 05:41 RBC 4.22 X10^6/uL (4.7-6.0) L 12/06/22 05:41 Hgb 12.5 g/dL (13.5-18.0) L 12/06/22 05:41 Hct 36.1 % (42.0-54.0) L 12/06/22 05:41 MCV 85.7 fL (80.0-100.0) 12/06/22 05:41 MCH 29.7 pg (27.0-34.0) 12/06/22 05:41 MCHC 34.7 g/dL (33.0-35.0) 12/06/22 05:41 RDW 16.3 % (11.6-16.5) 12/06/22 05:41 Plt Count 241 X10^3/uL (150.0-450.0) 12/06/22 05:41 Plt Count Comment Adequate (ADEQUATE) 12/05/22 19:15 MPV 10.3 fL (7.4-11.0) 12/06/22 05:41 Neut % (Auto) 65.9 % (42.0-75.0) 12/06/22 05:41 Lymph % (Auto) 17.8 % (21.0-51.0) L 12/06/22 05:41 [place] % (Auto) 11.2 % (0.0-13.0) 12/06/22 05:41 Eos % (Auto) 4.1 % (0.9-2.9) H 12/06/22 05:41 Baso % (Auto) 1.0 % (0.2-1.0) 12/06/22 05:41 Neut # (Auto) 13.5 x10^3/uL (2.2-4.8) H 12/06/22 05:41 Lymph # (Auto) 3.6 X10^3/uL (1.3-2.9) H 12/06/22 05:41 [place] # (Auto) 2.3 x10^3/uL (0.3-0.8) H 12/06/22 05:41 Eos # (Auto) 0.8 x10^3/uL (0.0-0.2) H 12/06/22 05:41 Baso # (Auto) 0.2 X10^3/uL (0.0-0.1) H 12/06/22 05:41 Absolute Nucleated RBC 0.0 /100WBC 12/06/22 05:41 Total Counted 100 12/05/22 19:15 Neutrophils % (Manual) 72 % (39-76) 12/05/22 19:15 Lymphocytes % (Manual) 17 % (13-43) 12/05/22 19:15 Monocytes % (Manual) 8 % (4-9) 12/05/22 19:15 Eosinophils % (Manual) 3 % (0-6) 12/05/22 19:15 Smudge Cells Few noted on slide 12/05/22 19:15 Plt Morphology Comment Normal (NORMAL) 12/05/22 19:15 RBC Morphology Normal (NORMAL) 12/05/22 19:15 Sodium 138 mmol/L (136-145) 12/06/22 05:41 Corrected Sodium 138 mmol/L (136-145) 12/06/22 05:41 Potassium 3.8 mmol/L (3.5-5.1) 12/06/22 11:45 Chloride 101 mmol/L (98-107) 12/06/22 05:41 Carbon Dioxide 27.3 mmol/L (21-32) 12/06/22 05:41 BUN 19 mg/dL (7-18) H 12/06/22 05:41 Creatinine 0.91 mg/dL (0.70-1.30) 12/06/22 05:41 Est GFR (MDRD) Af Amer > 60 (>60) 12/06/22 05:41 Est GFR (MDRD) Non-Af > 60 (>60) 12/06/22 05:41 Glucose 119 mg/dL (65-99) H 12/06/22 05:41 Lactic Acid 0.9 mmol/L (0.4-2.0) 12/05/22 19:15 Calcium 8.8 mg/dL (8.5-10.1) 12/06/22 05:41 Corrected Calcium 9.4 mg/dL (8.5-10.1) 12/06/22 05:41 Magnesium 1.2 mg/dL (2.0-2.9) L 12/06/22 05:41 Total Bilirubin 0.70 mg/dL (0.2-1.0) 12/06/22 05:41 AST 22 Units/L (15-37) 12/06/22 05:41 ALT 35 Units/L (12-78) 12/06/22 05:41 Alkaline Phosphatase 38 Units/L (46-116) L 12/06/22 05:41 Total Protein 7.4 g/dL (6.4-8.2) 12/06/22 05:41 Albumin 3.2 g/dL (3.4-5.0) L 12/06/22 05:41 Globulin 4.2 g/dL (2.5-4.5) 12/06/22 05:41 Albumin/Globulin Ratio 0.8 Ratio (1.1-2.1) L 12/06/22 05:41 Specimen Type Random urine 12/05/22 19: Urine Color Dark yellow (YELLOW) 12/05/22 19: Urine Appearance Slightly hazy (CLEAR) 12/05/22 19: Urine pH 5.0 (5.0 - 8.0) 12/05/22 19: Ur Specific [place] 1.020 (1.000-1.030) 12/05/22 19:29 Urine Protein 2+ (NEGATIVE) 12/05/22 19: Urine Glucose (UA) Negative (NEGATIVE) 12/05/22 19: Urine Ketones Negative (NEGATIVE) 12/05/22 19: Urine Blood Negative (NEGATIVE) 12/05/22 19: Urine Nitrite Negative (NEGATIVE) 12/05/22 19: Urine Bilirubin Negative (NEGATIVE) 12/05/22 19: Urine Urobilinogen Normal (NORMAL) 12/05/22 19: Ur Leukocyte Esterase Negative (NEGATIVE) 12/05/22 19: Urine RBC 0-2 /HPF (0-3) 12/05/22 19: Urine WBC None seen /HPF (0-5) 12/05/22 19:29 Ur Squamous Epith Cells Few /HPF (NEGATIVE) 12/05/22 19:29 Urine Bacteria Trace /HPF (NEGATIVE) 12/05/22 19:29 Hyaline Casts Moderate /LPF (NEGATIVE) 12/05/22 19:29 Urine Mucus Few /HPF (NEGATIVE) 12/05/22 19:29 Ur Culture Indicated? No/not indicated 12/05/22 19:29 SARS-CoV-2 (PCR) Negative (NEGATIVE) 12/05/22 19:22 Influenza Type A (PCR) Negative (NEGATIVE) 12/05/22 19:22 Influenza Type B (PCR) Negative (NEGATIVE) 12/05/22 19:22 RSV (PCR) Negative (NEGATIVE) 12/05/22 19:22 Review of Systems Constitutional: No Symptoms Reported Eyes: No Symptoms Reported ENT: No Symptoms Reported Respiratory: No Symptoms Reported Cardiovascular: No Symptoms Reported Gastrointestinal: No Symptoms Reported Genitourinary: No Symptoms Reported Musculoskeletal: No Symptoms Reported Skin: Wound (right forearm) Neurological: No Symptoms Reported Physical Exam Vital Signs: Temperature 98.9 F Pulse Rate [Right] 89 Pulse Rate 107 Respiratory Rate 20 Blood Pressure [Right Arm] 124/55 Blood Pressure 115/71 O2 Sat by Pulse Oximetry 94 Oriented: Normal Eyes: Normal Ear: Normal Nose: Normal Throat: Normal Respiratory: Clear Throughout Cardiovascular: Normal : Normal Auscultation: Bowel Sounds: Normal Palpation: Normal Tenderness: Normal Skin: Wound (yellowish, circular area of discharge with surrounding erythema of right forearm) Musculoskeletal: Normal Psychiatric: Normal Mood Description: Calm and Appropriate Affect: Normal Speech Pattern: Clear and Appropriate Assessment/Plan (1) Abscess of right forearm: Status: Acute Plan: consult general surgery antibiotics: Vancomycin and Zosyn Blood/wound culture pending (2) Hypokalemia: Status: Acute Plan: replete per protocol (3) Hypomagnesemia: Status: Acute Plan: replete per protocol Review H&P Reviewed: Yes Patient was examined?: Yes
[2022-12-06] MEDS ORDERED: BYFAVO INJ IVP ONE (15:15)
[2022-12-06] MEDS ORDERED: BETADINE SOLN ONE (15:15)
[2022-12-06] MEDS ORDERED: POLYMYXIN B SULFATE ONE (15:15)
[2022-12-06] MEDS ORDERED: XYLOCAINE 1 % (PLAIN) ONE (15:28)
[2022-12-06] MEDS ORDERED: ZOFRAN INJ 4 MG VIAL IVP PRN (19:49)
[2022-12-06] MEDS: NORCO 10/325 TAB PO PRN (20:15)
[2022-12-06] MEDS ORDERED: PROTONIX TAB 40 MG PO SCH (21:00)
[2022-12-06] MEDS ORDERED: MOBIC TAB 15 MG PO SCH (21:00)
[2022-12-06] MEDS ORDERED: ASPIRIN PO SCH (21:00)
[2022-12-06] MEDS ORDERED: TYLENOL 325 MG TAB PO PRN (23:11)
[2022-12-06 23:29] VITALS: O2SAT 94
[2022-12-07] MEDS: NS 1,000 ML IV 1,000 ML IV SCH (05:27)
[2022-12-07] MEDS: ZOSYN VIAL 3.375 GRAMS 3.375 G in NS 100 ML IV 100 ML IV SCH (05:27)
[2022-12-07] MEDS ORDERED: PHARMACY COMMENT IV NR (05:30)
[2022-12-07] MEDS: NORCO 10/325 TAB PO PRN (05:32)
[2022-12-07 05:49] LABS: BASOPHILS # (AUTO) 0.3 X10^3/uL (0.0-0.1); BASOPHILS % (AUTO) 1.6 % (0.2-1.0); EOSINOPHILS # (AUTO) 0.9 x10^3/uL (0.0-0.2); EOSINOPHILS % (AUTO) 4.5 % (0.9-2.9); HEMATOCRIT 34.4 % (42.0-54.0); HEMOGLOBIN 11.9 g/dL (13.5-18.0); LYMPHOCYTES # (AUTO) 3.6 X10^3/uL (1.3-2.9); MEAN CORPUSCULAR HEMOGLOBIN 29.6 pg (27.0-34.0); MEAN CORPUSCULAR HGB CONC 34.4 g/dL (33.0-35.0); MEAN PLATELET VOLUME 10.5 fL (7.4-11.0); MONOCYTES # (AUTO) 1.9 x10^3/uL (0.3-0.8); MONOCYTES % (AUTO) 9.8 % (0.0-13.0); NEUTROPHILS # (AUTO) 12.4 x10^3/uL (2.2-4.8); NEUTROPHILS % (AUTO) 65.1 % (42.0-75.0); PLATELET COUNT 248 X10^3/uL (150.0-450.0); RED BLOOD COUNT 4.01 X10^6/uL (4.7-6.0); RED CELL DISTRIBUTION WIDTH 16.2 % (11.6-16.5); WHITE BLOOD COUNT 19.1 X10^3/uL (3.6-10.0)
[2022-12-07 05:59] LABS: VANCOMYCIN,TROUGH 11.5 ug/mL (15-20)
[2022-12-07] MEDS: VANCOMYCIN IV *PREMIX 1 G/200 ML BAG 1 G/200 ML PIGGYBACK IV SCH (06:08)
[2022-12-07 06:13] LABS: ALANINE AMINOTRANSFERASE 40 Units/L (12-78); ALKALINE PHOSPHATASE 41 Units/L (46-116); ASPARTATE AMINO TRANSFERASE 28 Units/L (15-37); BLOOD UREA NITROGEN 20 mg/dL (7-18); CALCIUM 8.5 mg/dL (8.5-10.1); CARBON DIOXIDE 26.9 mmol/L (21-32); CHLORIDE 101 mmol/L (98-107); COR CA(FOR HYPOALB) 9.3 mg/dL (8.5-10.1); COR NA(FOR HYPERGLY) 137 mmol/L (136-145); GLUCOSE 116 mg/dL (65-99); MAGNESIUM 1.8 mg/dL (2.0-2.9); POTASSIUM 3.5 mmol/L (3.5-5.1); SODIUM 137 mmol/L (136-145); TOTAL PROTEIN 7.1 g/dL (6.4-8.2); eGFR NON BLACK RACES > 60 (>60)
[2022-12-07] MEDS ORDERED: ZOLOFT ONE (08:34)
[2022-12-07] MEDS: MAGNESIUM SULFATE 1 GRAM/100 mL PREMIX 1 G/100 ML BAG IV PRN ×2 (08:43→10:13)
[2022-12-07] MEDS: CHLORTHALIDONE PO SCH (08:45)
[2022-12-07] MEDS: COREG TAB 25 MG PO SCH (08:46)
[2022-12-07] MEDS: ZOLOFT PO SCH (08:46)
[2022-12-07] MEDS: K-DUR TAB 20 MEQ PO PRN (08:46)
[2022-12-07] MEDS: NEURONTIN CAP 300 MG PO SCH (08:46)
[2022-12-07] MEDS: ZYLOPRIM PO SCH (08:46)
[2022-12-07] MEDS: ZESTRIL TAB 10 MG PO SCH (08:47)
[2022-12-07] MEDS: NORVASC TAB 5 MG PO SCH (08:47)
[2022-12-07] MEDS: PATIENT'S HOME MEDICATION (Icosapent Ethyl [Vascepa] 1 gram capsule) PO SCH (10:23)
[2022-12-07 12:19] VITALS: BP 112/69; PULSE 74; TEMP 67.8
--- NOTE | 2022-12-08 08:40 | W.DIS.FURT ---
Summary of Discharge Discharge Summary of Date Date of Exam: 12/07/22 Admission Date Date of Admission: 12/05/22 Admission Diagnosis Patient Problems (Updated 12/06/22 @ 15:12 by Dc Henry) Cellulitis (Acute) L03.90 Pain in right forearm (Acute) M79.631 Hospital Course: Pt with history of Hypertension, Diabetes, Sarcoidosis, admitted for cellulitis and abscess of right forearm. His hospital/treatment course included: antibiotics IV vancomycin and zosyn. General surgery-Dr Dash was consulted and patient is s/p debridement of wound. Wound culture positive for MRSA. Pt responded well to treatments. He was discharged in stable condition. Rx clindamycin and bactroban. Instructions given on wound care. He will follow up with his pcp and Dr Dash in one week. Vital Signs: Vital Signs (72 hours) 12/05/22 17:50 12/05/22 22:55 12/06/22 01:20 Temperature 99.7 F H 98.8 F Pulse Rate 107 H Pulse Rate [Right] 93 H Respiratory Rate 18 22 22 Blood Pressure 115/71 Blood Pressure [Right Arm] 124/67 158/97 O2 Sat by Pulse Oximetry 94 L 99 94 L Oxygen Delivery Method Room Air Room Air 12/06/22 04:00 12/06/22 08:00 12/06/22 11:28 Temperature 98.9 F 97.8 F 98.9 F Pulse Rate Pulse Rate [Right] 90 92 H 89 Respiratory Rate 20 20 20 Blood Pressure Blood Pressure [Right Arm] 131/78 141/92 124/55 O2 Sat by Pulse Oximetry 93 L 93 L 94 L Oxygen Delivery Method Room Air Room Air Room Air 12/06/22 15:54 12/06/22 16:09 12/06/22 16:24 Temperature 98 F 98.2 F 98.1 F Pulse Rate Pulse Rate [Right] 93 H 91 H 92 H Respiratory Rate 17 18 18 Blood Pressure Blood Pressure [Right Arm] 147/89 144/84 147/87 O2 Sat by Pulse Oximetry 97 96 94 L Oxygen Delivery Method Room Air Room Air Room Air 12/06/22 16:39 12/06/22 16:54 12/06/22 17:54 Temperature 98 F 97.9 F 99.3 F Pulse Rate Pulse Rate [Right] 91 H 93 H 100 H Respiratory Rate 18 18 20 Blood Pressure Blood Pressure [Right Arm] 145/83 154/82 154/86 O2 Sat by Pulse Oximetry 96 95 94 L Oxygen Delivery Method Room Air Room Air Room Air 12/06/22 18:14 12/06/22 20:15 12/06/22 20:00 Temperature 98.5 F 100.0 F H Pulse Rate Pulse Rate [Right] 98 H 99 H Respiratory Rate 20 18 20 Blood Pressure Blood Pressure [Right Arm] 152/86 162/90 O2 Sat by Pulse Oximetry 95 95 Oxygen Delivery Method Room Air Room Air 12/06/22 19:54 12/06/22 21:15 12/06/22 20:54 Temperature 98.7 F Pulse Rate Pulse Rate [Right] 99 H 98 H Respiratory Rate 20 18 20 Blood Pressure Blood Pressure [Right Arm] 162/90 142/89 O2 Sat by Pulse Oximetry 95 95 Oxygen Delivery Method Room Air Room Air 12/06/22 23:28 12/07/22 04:00 12/07/22 05:32 Temperature 99.4 F 98.5 F Pulse Rate Pulse Rate [Right] 100 H 85 Respiratory Rate 20 20 18 Blood Pressure Blood Pressure [Right Arm] 110/59 100/57 O2 Sat by Pulse Oximetry 94 L 94 L Oxygen Delivery Method Room Air Room Air 12/07/22 06:32 12/07/22 08:00 12/07/22 12:00 Temperature 97.9 F 67.8 F L Pulse Rate Pulse Rate [Right] 76 74 Respiratory Rate 18 20 20 Blood Pressure Blood Pressure [Right Arm] 94/55 112/69 O2 Sat by Pulse Oximetry 94 L 94 L Oxygen Delivery Method Room Air Room Air 12/07/22 13:56 Temperature Pulse Rate Pulse Rate [Right] Respiratory Rate 20 Blood Pressure Blood Pressure [Right Arm] O2 Sat by Pulse Oximetry Oxygen Delivery Method Labs: Laboratory Last Values WBC 19.1 X10^3/uL (3.6-10.0) H 12/07/22 05:05 RBC 4.01 X10^6/uL (4.7-6.0) L 12/07/22 05:05 Hgb 11.9 g/dL (13.5-18.0) L 12/07/22 05:05 Hct 34.4 % (42.0-54.0) L 12/07/22 05:05 MCV 86.0 fL (80.0-100.0) 12/07/22 05:05 MCH 29.6 pg (27.0-34.0) 12/07/22 05:05 MCHC 34.4 g/dL (33.0-35.0) 12/07/22 05:05 RDW 16.2 % (11.6-16.5) 12/07/22 05:05 Plt Count 248 X10^3/uL (150.0-450.0) 12/07/22 05:05 Plt Count Comment Adequate (ADEQUATE) 12/05/22 19:15 MPV 10.5 fL (7.4-11.0) 12/07/22 05:05 Neut % (Auto) 65.1 % (42.0-75.0) 12/07/22 05:05 Lymph % (Auto) 19.0 % (21.0-51.0) L 12/07/22 05:05 [place] % (Auto) 9.8 % (0.0-13.0) 12/07/22 05:05 Eos % (Auto) 4.5 % (0.9-2.9) H 12/07/22 05:05 Baso % (Auto) 1.6 % (0.2-1.0) H 12/07/22 05:05 Neut # (Auto) 12.4 x10^3/uL (2.2-4.8) H 12/07/22 05:05 Lymph # (Auto) 3.6 X10^3/uL (1.3-2.9) H 12/07/22 05:05 [place] # (Auto) 1.9 x10^3/uL (0.3-0.8) H 12/07/22 05:05 Eos # (Auto) 0.9 x10^3/uL (0.0-0.2) H 12/07/22 05:05 Baso # (Auto) 0.3 X10^3/uL (0.0-0.1) H 12/07/22 05:05 Absolute Nucleated RBC 0.0 /100WBC 12/07/22 05:05 Total Counted 100 12/05/22 19:15 Neutrophils % (Manual) 72 % (39-76) 12/05/22 19:15 Lymphocytes % (Manual) 17 % (13-43) 12/05/22 19:15 Monocytes % (Manual) 8 % (4-9) 12/05/22 19:15 Eosinophils % (Manual) 3 % (0-6) 12/05/22 19:15 Smudge Cells Few noted on slide 12/05/22 19:15 Plt Morphology Comment Normal (NORMAL) 12/05/22 19:15 RBC Morphology Normal (NORMAL) 12/05/22 19:15 Sodium 137 mmol/L (136-145) 12/07/22 05:05 Corrected Sodium 137 mmol/L (136-145) 12/07/22 05:05 Potassium 4.0 mmol/L (3.5-5.1) 12/07/22 10:55 Chloride 101 mmol/L (98-107) 12/07/22 05:05 Carbon Dioxide 26.9 mmol/L (21-32) 12/07/22 05:05 BUN 20 mg/dL (7-18) H 12/07/22 05:05 Creatinine 1.20 mg/dL (0.70-1.30) 12/07/22 05:05 Est GFR (MDRD) Af Amer > 60 (>60) 12/07/22 05:05 Est GFR (MDRD) Non-Af > 60 (>60) 12/07/22 05:05 Glucose 116 mg/dL (65-99) H 12/07/22 05:05 Lactic Acid 0.9 mmol/L (0.4-2.0) 12/05/22 19:15 Calcium 8.5 mg/dL (8.5-10.1) 12/07/22 05:05 Corrected Calcium 9.3 mg/dL (8.5-10.1) 12/07/22 05:05 Magnesium 1.8 mg/dL (2.0-2.9) L 12/07/22 05:05 Total Bilirubin 0.70 mg/dL (0.2-1.0) 12/07/22 05:05 AST 28 Units/L (15-37) 12/07/22 05:05 ALT 40 Units/L (12-78) 12/07/22 05:05 Alkaline Phosphatase 41 Units/L (46-116) L 12/07/22 05:05 Total Protein 7.1 g/dL (6.4-8.2) 12/07/22 05:05 Albumin 3.0 g/dL (3.4-5.0) L 12/07/22 05:05 Globulin 4.1 g/dL (2.5-4.5) 12/07/22 05:05 Albumin/Globulin Ratio 0.7 Ratio (1.1-2.1) L 12/07/22 05:05 Specimen Type Random urine 12/05/22: Urine Color Dark yellow (YELLOW) 12/05/22: Urine Appearance Slightly hazy (CLEAR) 12/05/22 19: Urine pH 5.0 (5.0 - 8.0) 12/05/22 19: Ur Specific [place] 1.020 (1.000-1.030) 12/05/22 19: Urine Protein 2+ (NEGATIVE) 12/05/22 19: Urine Glucose (UA) Negative (NEGATIVE) 12/05/22 19: Urine Ketones Negative (NEGATIVE) 12/05/22 19: Urine Blood Negative (NEGATIVE) 12/05/22: Urine Nitrite Negative (NEGATIVE) 12/05/22 19: Urine Bilirubin Negative (NEGATIVE) 12/05/22 19: Urine Urobilinogen Normal (NORMAL) 12/05/22 19: Ur Leukocyte Esterase Negative (NEGATIVE) 12/05/22 19: Urine RBC 0-2 /HPF (0-3) 12/05/22 19: Urine WBC None seen /HPF (0-5) 12/05/22 19: Ur Squamous Epith Cells Few /HPF (NEGATIVE) 12/05/22 19: Urine Bacteria Trace /HPF (NEGATIVE) 12/05/22 19: Hyaline Casts Moderate /LPF (NEGATIVE) 12/05/22 19: Urine Mucus Few /HPF (NEGATIVE) 12/05/22 19: Ur Culture Indicated? No/not indicated 12/05/22 19: Vancomycin Trough 11.5 ug/mL (15-20) L 12/07/22 05:05 SARS-CoV-2 (PCR) Negative (NEGATIVE) 12/05/22 19: Influenza Type A (PCR) Negative (NEGATIVE) 12/05/22 19: Influenza Type B (PCR) Negative (NEGATIVE) 12/05/22 19: RSV (PCR) Negative (NEGATIVE) 12/05/22 19:22 Reason For Visit: CELLULITIS TO THE (RFA) Discharge Date Discharge Date: 12/07/22 Discharge Diagnosis All Active Problems (Updated 12/06/22 @ 15:12 by Dc Henry) Abscess of right forearm (Acute) Nausea and vomiting in adult patient (Acute) Asplenia (Acute) Gastroenteritis (Acute) Leukocyte disorder (Acute) Fall from ladder (Acute) Cervicalgia (Acute) Right arm pain (Acute) Right leg pain (Acute) Right flank pain (Acute) Anterolisthesis (Acute) Furuncle of upper back excluding scapular region (Acute) Furuncle of right lower limb (Acute) Human bite of right forearm (Acute) Angina pectoris (Acute) Sarcoidosis (Acute) Hypokalemia (Acute) Hypomagnesemia (Acute) Chest pain (Acute) Hyponatremia (Acute) Hypertension (Acute) Cellulitis (Acute) Pain in right forearm (Acute) Plan of Treatment: Continue with present treatment and follow up plan. Pt is to keep follow up appointment as instructed and take medications as ordered. Discharge Medications Discharge Medications: codeine Allergy (Verified 12/05/22 17:50) niacin Allergy (Verified 12/05/22 17:50) CONTINUE taking the following medications amlodipine 10 mg tablet 1 tab PO QDAY 12/06/22 [History] chlorthalidone 25 mg tablet 25 mg PO QDAY 12/06/22 [History] doxycycline hyclate 100 mg tablet 1 tab PO BID 12/06/22 [History] icosapent ethyl 1 gram capsule (Vascepa) 2 cap PO BID 12/06/22 [History] methocarbamol 750 mg tablet 1 tab PO Q4HHR 12/06/22 [History] valsartan 320 mg tablet 1 tab PO QDAY 12/06/22 [History] New Prescriptions clindamycin HCl 300 mg capsule 300 mg PO TID #20 caps 12/07/22 [Rx] hydrocodone 5 mg-acetaminophen 325 mg tablet 1 tab PO Q8H PRN #20 tabs 12/07/22 [Rx] mupirocin 2 % topical ointment 1 applic topical BID 10 days #7 grams 12/07/22 [Rx] Discharge Disposition Assessment: No acute distress noted at time of discharge. Discharge Plan Discharge Plan Hospital Course: Pt with history of Hypertension, Diabetes, Sarcoidosis, admitted for cellulitis and abscess of right forearm. His hospital/treatment course included: antibiotics IV vancomycin and zosyn. General surgery-Dr Dash was consulted and patient is s/p debridement of wound. Wound culture positive for MRSA. Pt responded well to treatments. He was discharged in stable condition. Rx clindamycin and bactroban. Instructions given on wound care. He will follow up with his pcp and Dr Dash in one week. Patient Disposition: 01 HOME, SELF-CARE Condition: Stable Health Concerns: Post Hospitalization: new medications and changes needed to prevent readmission or further decline. Pt educated and given instructions on all concerns. Care Plan Goals: Problem: Infection Goal: Temperature within normal limits. Resolved infection. Instructions: Follow provided instructions. Follow up with primary physician as directed. Contact primary care physician or report to the closest Emergency Room if condition worsens. Plan of Treatment: Continue with present treatment and follow up plan. Pt is to keep follow up appointment as instructed and take medications as ordered. Assessment: No acute distress noted at time of discharge. Prescriptions: New clindamycin HCl 300 mg Capsule 300 mg PO TID Qty: 20 0RF hydrocodone-acetaminophen 5-325 mg Tablet 1 tab PO Q8H MDD 3 PRNQty: 20 0RF mupirocin 2 % Ointment 1 applic TOPICAL BID 10 Days Qty: 7 0RF No Action metformin 500 mg tablet 500 mg PO QDAY carvedilol 25 mg tablet 25 mg PO BID sertraline [Zoloft] 100 mg tablet 100 mg PO BID hydrocodone-acetaminophen 10-325 mg tablet 2 tab PO TID PRN (Reason: Pain) trazodone 100 mg tablet 100 mg PO HS pregabalin [Lyrica] 100 mg capsule 100 mg PO BID chlorthalidone 25 mg Tablet 25 mg PO QDAY methocarbamol 750 mg tablet 1 tab PO Q4HHR amlodipine 10 mg tablet 1 tab PO QDAY valsartan 320 mg tablet 1 tab PO QDAY doxycycline hyclate 100 mg tablet 1 tab PO BID Rx Instructions: for 10 days, started on 12/04/22 icosapent ethyl [Vascepa] 1 gram capsule 2 cap PO BID Outpt. Procedure Orders: Discharge (Routine) Location: None Selected Ordered By: JARROD SCHULZ Orders to Discharge Patient Discharge Orders: Discharge (Routine); Ordered 12/07/22 Ordered By: Dc Henry Follow ups/Referrals Follow ups/Referrals: QUAN CORNELL [Primary Care Provider] - 12/11/22 11:00 am JARROD SCHULZ [STAFF PHYSICIAN] - 12/18/22 2:00 pm Instructions Instructions: How to Change Your Wound Dressing, Skin Abscess, [id number], Cellulitis, Adult, [id number], Wound Care, Adult, Incision and Drainage, Care After, MRSA Infection, Adult, You've Been Prescribed an Antibiotic in the Hospital for an Infection - CDC Stand Alone Forms: Excuse From Work or School
== END 2022-12-07 14:20 | disposition home or self-care (01) ==
LOC: MED/SURG 17:47 → ER 17:47 → MED/SURG 12-06 01:17
PROVIDERS: ADMIT Family Medicine; ATTEND Family Medicine
DX: Z98.890 Other specified postprocedural states; R50.9 Fever, unspecified; E66.01 Morbid (severe) obesity due to excess calories; B95.62 Methicillin resistant Staphylococcus aureus infection as the cause of diseases classified elsewhere; I10 Essential (primary) hypertension; L03.113 Cellulitis of right upper limb; E11.8 Type 2 diabetes mellitus with unspecified complications